=== PATIENT | female | born 1995 | race Caucasian/White ===

== ENCOUNTER → 2025-04-27 | Outpatient (CLI) | payer OTHER, SELFPAY ==
[2025-05-03 13:08] LABS: HPV APTIMA, High Risk Negative (Negative)
== END | disposition home or self-care (01) ==
LOC: LABSPEC 16:13
PROVIDERS: PCP Nurse Practitioner Family; Referring Provider Advanced Practice Midwife; Visit Provider Advanced Practice Midwife
DX: Z12.4 Encounter for screening for malignant neoplasm of cervix (principal)
CPT/HCPCS: 87624; 88175; G0145

== ENCOUNTER → 2025-05-02 | Outpatient (CLI) | payer OTHER, SELFPAY | END | disposition home or self-care (01) | LOC: OPUS 07:55 | PROVIDERS: PCP Nurse Practitioner Family; Referring Provider Advanced Practice Midwife; Visit Provider Advanced Practice Midwife | DX: N91.1 Secondary amenorrhea (principal) | CPT/HCPCS: 76830 ==

== ENCOUNTER → 2025-05-06 | Outpatient (CLI) | payer OTHER, SELFPAY | END | disposition home or self-care (01) | PROVIDERS: PCP Nurse Practitioner Family; Referring Provider Advanced Practice Midwife; Visit Provider Advanced Practice Midwife | DX: N97.0 Female infertility associated with anovulation (principal); Z87.42 Personal history of other diseases of the female genital tract; N91.1 Secondary amenorrhea | CPT/HCPCS: 36415; 83036; 84443 ==

== ENCOUNTER → 2025-05-25 | Outpatient (CLI) | payer OTHER, SELFPAY ==
--- OUTSIDE RECORDS SUMMARY | 2025-05-25 10:32 | XMS RPT_ITS | CCD ---
Author Organization [facility] Care Team Providers Care Facsimile Machine Operator Name Role Phone Melanie De Paz Unavailable Unavailable Melanie De Paz Unavailable Unavailable Melanie De Paz Unavailable Unavailable Melanie De Paz Unavailable Unavailable Brezine, Petrona Unavailable Unavailable Zeloalejandro, Petrona Unavailable Unavailable Unknown, Referring Provider Unavailable Unav ailable Unavailable Unavailable Unavailable Unavailable Unavailable DR MIGUELITO REESE DO Attending Unavailable DARIEN EDUCATIONAL TECHNOLOGY SPECIALIST-CLASSROOM INSTRUCTIONAL AIDE, SAMUEL A Primary Care Un available DARIEN EDUCATIONAL TECHNOLOGY SPECIALIST-CLASSROOM INSTRUCTIONAL AIDE, SAMUEL Perez Attending Un available DARIEN EDUCATIONAL TECHNOLOGY SPECIALIST-CLASSROOM INSTRUCTIONAL AIDE, SAMUEL A Primary Care Un available DARIEN EDUCATIONAL TECHNOLOGY SPECIALIST-CLASSROOM INSTRUCTIONAL AIDE, SAMUEL A Primary Care Physi winston Russell Robison Attending Provider [phone] Delma Moon CNM Attending Provider [phone] Jos PREP MANAGER-C, Carolyn Primary Care Provider [phone] Jos PREP MANAGER-C, Carolyn Referring Provider [phone] Delma Moon CNM Referring Provider Delma Moon Attending Unavailable Jos, Carolyn Primary Care Unavailable Delma Moon Referring Unavailable Delma Moon Attending Unavailable Jos, Carolyn Primary Care Unavailable Delma Moon Referring Unavailable Jos, Carolyn Primary Care Unavailable Delma Moon Referring Unavailable Delma Moon Attending Unavailable Jos, Carolyn Referring Unavailable Jos, Carolyn Primary Care Unavailable Delma Moon Attending Unavailable Russell Robison Attending Unavailable Allergies Allergy Classification Reported Allergen(s) Allergy Type Date of Onset Reaction(s) Facility (5 sources) Latex Allergy to substance 5 severe infection [facility] (1 source) Latex Drug allergy (disorder) 5 [facility] Repository Medications Current Medications Medication Drug Class(es) Dates Sig (Normalized) Sig (Original) ascorbic acid 250 mg oral tablet (5 sources) Vitamin C Start: 03-11-2025 take 1 tablet by mouth once daily Ascorbic Acid (Vitamin C) 250 mg tablet Active 250 mg PO daily March 11, 2025 12:00am cephalexin 500 mg oral capsule (1 source) Cephalosporin Antibacterial Start: 11-18-2023 End: 11-25-2023 cephalexin 500 mg oral capsule Dose : 500 mg = 1 cap(s), Oral, q12h, Drink plenty of fluids., X 7 day(s), # 14 cap(s), 0 Refill(s), 11/25/23 4:38:00 PM EST, Pharmacy: [facility]/pharmacy #[id number], 162.6, cm, 09/24/23 16:15:00 EST, Height, 72, kg, 09/24/23 16:15:00 EST, Dosing Weight Start Date: 11/18/23 Stop Date: 11/25/23 Status: Ordered cetirizine hydrochloride 10 mg oral tablet (5 sources) Histamine-1 Receptor Antagonist Start: 03-11-2025 take 1 tablet by mouth once daily as needed Cetirizine (Aller-Mehreen) 10 mg tablet Active 10 mg PO daily as needed March 11, 2025 12:00am clindamycin 0.01 mg/mg topical gel (5 sources) Lincosamide Antibacterial Start: 04-27-2025 Clindamycin Phosphate 1 % gel Active 1 NMA TOPICAL daily April 27, 2025 12:00am Start: 09-24-2023 End: 09-18-2024 clindamycin 1% topical gel A pply 1 jane, Topical, BID, please provide 3, 30 gram tubes at each refill if insurance approves 30 day supply., # 30 gram(s), 3 Refill(s), Pharmacy: [facility], Gel, 162.6, cm, 09/24/23 16:15:00 EST, Height, 72, kg, 09/24/23 16:15:00 EST, Dosing Weight Start Date: 09/24/23 Stop Date: 09/18/24 Status: Ordered Multivitamin (Daily Multi-Vitamin) tablet (5 sources) Start: 03-11-2025 Multivitamin ( Daily Multi-Vitamin) tablet Active 1 {tbl} PO EVERY MORNING March 11, 2025 12:00am spironolactone 25 mg oral tablet (1 source) Aldosterone Antagonist Start: 10-28-2023 End: 10-22-2024 spironolactone 25 mg oral tablet Dose : 25 mg = 1 tab(s), Oral, qDay, # 90 tab(s), 3 Refill(s), Pharmacy: [facility], Acne, 162.6, cm, 09/24/23 16:15:00 EST, Height, kg, 09/24/23 16:15:00 EST, Dosing Weight Start Date: 10/28/23 Stop Date: 10/22/24 Status: Ordered women's omega (4 sources) Start: 04-27-2025 women's omega Active PO April 27, 2025 12:00am Completed/Discontinued Medications Medication Drug Class(es) Dates Sig (Normalized) Sig (Original) amoxicillin 875 mg / clavulanate 125 mg oral tablet (4 sources) Penicillin-class Antibacterial Start: 03-11-2025 End: 03-21-2025 Amoxicillin-Pot Clavulanate 875-125 mg tablet Discontinued 1 {tbl} PO Q12H 20 10 0 March 11, 2025 12:00am March 20, 2025 12:00am March 21, 2025 12:07am Acute sinusitis, unspecified {24 (drospirenone 3 MG / Ethinyl Estradiol 0.02 MG / levomefolate calcium 0.451 MG Oral Tablet) / 4 (levomefolate calcium 0.451 MG Oral Tablet) } Pack (1 source) Progestin, Estrogen Start: 03-27-2022 drospirenone/ethin yl estradiol/levomefo late 3 mg-0.02 mg-0.451 mg oral tablet 0 Refill(s) Start Date: 03/27/22 Status: Ordered Sprintec 28 0.25-35 MG-MCG Oral Tablet (3 sources) Progestin, Estrogen Start: 07-29-2020 take 1 tablet by mouth once daily Sprintec 28 0.25-35 MG-MCG Oral Tablet TAKE 1 TABLET DAILY. Quantity: 3 Refills: 0 Petrona Arambula Start : 29-Jul-2020 Active 28 Tablet Pack Start: 07-05-2019 take 1 tablet by jeniffer th once daily Sprintec 28 0.25-35 MG-MCG Oral Tablet TAKE 1 TABLET DAILY. Quantity: 3 Refills: 4 Petrona Tse Start : 05-Jul-2019 Active 28 Tablet Pack Start: 06-01-2019 take 1 tablet by jeniffer th once daily Sprintec 28 0.25-35 MG-MCG Oral Tablet TAKE 1 TABLET DAILY. Quantity: 3 Refills: 0 Melanie De Paz MD Start : 01-Jun-2019 Active 28 Tablet Pack medroxyPROGESTERone acetate 5 mg oral tablet (4 sources) Progestin Start: 04-27-2025 End: 05-02-2025 take 2 tablets by mouth once daily Medroxyprogesterone (Provera) 5 mg tablet Discontinued 10 mg PO DAILY 10 5 0 April 27, 2025 12:00am May 01, 2025 12:00am May 02, 2025 12:06am Abnormal uterine bleeding Abnormal uterine and vaginal bleeding, unspecified 2 tabs daily for 5 days. Call office if no withdrawal bleed Sprintec 28 0.25-35 MG-MCG Oral Tablet (4 sources) Start: 09-08-2020 take 1 tablet by mouth once daily Sprintec 28 0.25-35 MG-MCG Oral Tablet TAKE 1 TABLET DAILY. Quantity: 3 Refills: 3 Ordered: 08-Sep-2020 Petrona Arambula Start : 08-Sep-2020 Active Start: 06-01-2019 take 1 tablet by jeniffer th once daily Sprintec 28 0.25-35 MG-MCG Oral Tablet TAKE 1 TABLET DAILY. Quantity: 3 Refills: 0 Ordered: 01-Jun-2019 Melanie De Paz MD Start : 01-Jun-2019 Active sulfamethoxazole 800 mg / trimethoprim 160 mg oral tablet (2 sources) Dihydrofolate Reductase Inhibitor Antibacterial, Sulfonamide Antimicrobial Start: 06-03-2021 take 1 tablet by mouth twice daily Sulfamethoxazole-Trimethoprim 800-160 MG Oral Tablet TAKE 1 TABLET TWICE DAILY. Quantity: 10 Refills: 0 Ordered: 03-Jun-2021 Leo QUINTERO, MPH, Daphney Start : 03-Jun-2021 Active Problems Active Problems Problem Classification Problem Date Documented Date Episodic/Chronic Asthma (5 sources) Asthma; Translations: [Unspecified asthma, uncomplicated] 03-11-2025 Chronic Contraceptive and procreative management (3 sources) Oral contraception status; Translations: [Surveillance of contraceptive pill] Episodic Female infertility (1 source) Female infertility associated with anovulation; Translations: [Female infertility associated with anovulation] Onset: 05-12-2025 Chronic Genitourinary symptoms and ill-defined conditions (6 sources) Dysuria; Translations: [Dysuria] Onset: 11-18-2023 Episodic Menstrual disorders (9 sources) Secondary amenorrhea; Translations: [Secondary amenorrhea] Onset: 05-06-2025 04-27-2025 Chronic Comment on above: Day 3 and 21 labs, T SH normal, TVUS Other endocrine disorders (1 source) Polycystic ovary syndrome 01-07-2022 Chronic Other female genital disorders (1 source) Abnormal uterine and vaginal bleeding, unspecified; Translations: [Abnormal uterine and vaginal bleeding, unspecified] Onset: 04-27-2025 Chronic Other female genital disorders (4 sources) History of gynecological disorder; Translations: [Personal history of other diseases of the female genital tract] 04-27-2025 Episodic Comment on above: on TVUS Other screening for suspected conditions (not mental disorders or infectious disease) (1 source) Encounter for screening for malignant neoplasm of cervix; Translations: [Encounter for screening for malignant neoplasm of cervix] Onset: 05-05-2025 Episodic Other skin disorders (1 source) Acne 01-07-2022 Episodic Other skin disorders (1 source) Hirsutism 01-07-2022 Episodic Other upper respiratory infections (8 sources) Acute sinusitis; Translations: [Acute sinusitis, unspecified] 03-11-2025 Episodic Unclassified (1 source) Unknown / UNK(Unknown) Onset: 04-17-2018 Unclassified (1 source) Patient encounter status 03-26-2022 Past or Other Problems Problem Classification Problem Date Documented Da te Episodic/Chronic Unclassified (1 source) Z01.419 N39.0 N76.0 Onset: 04-17-2018 Results Test Name Value Interpretation Reference Range Facility Hemoglobin A1con 05-06-2025 HbA1c (Bld) [Mass fraction] 5.0 % Normal <=5.6 [facility] Comment on above: Result Comment: Norm al < 5.7 % Prediabetic 5.7 - 6.4 % Diabetic >or= 6.5 % Please note range changes. Performed By: #### L 501.9520, L900.0111, L501.9985 #### [facility] [address] [place], [address] Hemoglobin A1c percentageOrd ered By: Delma Moon on 05-06-2025 HbA1c (Bld) [Mass fraction] 5.0 % <5.7 [facility] Comment on above: Normal < 5.7 % Predi abetic 5.7 - 6.4 % Diabetic >or= 6.5 % Please note range changes. L900.0111on 05-06-2025 REPROSOURCE SEE SCANNED REPORT Normal [facility] Comment on above: Performed By: #### L 501.9520, L900.0111, L501.9985 #### [facility] [address] [place], [place], [id number] No Panel InformationOrdered By: Delma Moon on 05-06-2025 Miscellaneous Test Comment SEE SCANNED REPORT [facility] TSH DL <= 0.005 mIU/L QnOrde red By: Delma Moon on 05-06-2025 TSH Qn 1.360 uIU/mL 0.300-4.200 [facility] Thyroid Stim Hormone (TSH)on 05-06-2025 TSH 1.360 uIU/mL Normal 0.300-4.200 [facility] Comment on above: Performed By: #### L 501.9520, L900.0111, L501.9985 #### [facility] [address] [place], [address] PAP IG HPV APTIMA 16/18,45on 05-03-2025 ADEQ Comment Normal . [facility] Comment on above: Order Comment: Speci men Comment: [id number] Specimen Comment: No. of containers..01 ThinPrep Vial Result Comment: Sati sfactory for evaluation. No endocervical component is identified. Performed By: #### L 7400.0280 #### [facility] [address] [place], [address] COMM . Normal . [facility] Comment on above: Order Comment: Speci men Comment: [id number] Specimen Comment: No. of containers..01 ThinPrep Vial Performed By: #### L 7400.0280 #### [facility] [address] [place], [place], [id number] COMMENT Comment Normal . [facility] Comment on above: Order Comment: Speci men Comment: [id number] Specimen Comment: No. of containers..01 ThinPrep Vial Result Comment: This liquid based ThinPrep(R) pap test was screened with the use of an image guided system. Performed By: #### L 7400.0280 #### [facility] [address] [place], [address] DIAG Comment Normal . [facility] Comment on above: Order Comment: Speci men Comment: [id number] Specimen Comment: No. of containers..01 ThinPrep Vial Result Comment: NEGA TIVE FOR INTRAEPITHELIAL LESION OR MALIGNANCY. Performed By: #### L 7400.0280 #### [facility] [address] [place], [address] HPV APTIMA, HR Negative Normal Negative [facility] Comment on above: Order Comment: Speci men Comment: [id number] Specimen Comment: No. of containers..01 ThinPrep Vial Result Comment: This nucleic acid amplification test detects fourteen high- risk HPV types (16,18,31,33,35,39,45,51,52,56,58,59,66,68) without differentiation. Performed By: #### L 7400.0280 #### [facility] [address] [place], [address] HPV Claire Rfx Comment Normal . [facility] Comment on above: Order Comment: Speci men Comment: [id number] Specimen Comment: No. of containers..01 ThinPrep Vial Result Comment: Raghu castro not met, HPV Genotype not performed. Performed at: WB - [facility] [address] [id number] Stock Supervisor: Leonela Campbell MD, Phone: [phone] Performed at: =G - [facility] [place] [address] [facility], [place] [id number] Stock Supervisor: Leonela Campbell MD, Phone: [phone] Performed By: #### L 7400.0280 #### [facility] [address] [place], [place], [address] PAPSMR Comment Normal . [facility] Comment on above: Order Comment: Speci men Comment: [id number] Specimen Comment: No. of containers..01 ThinPrep Vial Result Comment: The Pap smear is a screening test designed to aid in the detection of premalignant and malignant conditions of the uterine cervix. It is not a diagnostic procedure and should not be used as the sole means of detecting cervical cancer. Both false-positive and false-negative reports do occur. Performed By: #### L 7400.0280 #### [facility] [address] [place], [place], [id number] PERFORM Comment Normal . [facility] Comment on above: Order Comment: Speci men Comment: [id number] Specimen Comment: No. of containers..01 ThinPrep Vial Result Comment: Gee Fatima Residential [facility] Facility Manager (ASCP) Performed By: #### L 7400.0280 #### [facility] [address] [place], [place], [id number] Transvaginal Non-on 05-02-2025 Transvaginal Non- [facility] Services [address] [place], [place] [address] Transvaginal Non- MR#: [id number] Acct: [id number] Name: ELLY GANDHI Rep #: [id number] : 1995 F 30 From: Chance lewis MD PCP: [facility] Status: REG CLI Study: Transvaginal Non- Date of Exam: Exam# [id number] Ordering Dr: Delma Moon CNM PROCEDURE: TRANSVAGINAL NON- 05/02/2025 REASON FOR EXAM: AMENORRHEA History of polycystic ovary syndrome. TECHNIQUE: TRANSVAGINAL NON- COMPARISON: None FINDINGS: LMP: February 13, 2025. Measurements: Uterus: 8.9 cm x 4.9 cm x 3.5 cm with a volume of 80.22 mL. Nabothian cyst. Endometrial Thickness: 5.7 mm. It is hyperechoic. Right Ovary: 3.8 cm x 2.8 cm x 2.4 cm with a volume of 13.09 mL. Small follicles are seen within the ovary. Left Ovary: 4.8 cm x 3.5 cm x 2.8 cm with a volume of 24.48 mL. Small follicles are seen within the ovary. Uterus: Normal size, myometrial echotexture, and contour. Endometrium: Unremarkable. Right ovary: Multiple follicles are seen within the right ovary. Left ovary: Multiple follicles are seen within the left ovary. Other: US/Transvaginal Non- IMPRESSION: Multiple follicles are seen in both ovaries. Reading Location: [place] [address] CC: BENNETT Moon; PREP MANAGER-C Carolyn Arguello President Financial Institution: Signed Normal [facility] Cervical or vaginal specimen microscopic examination by liquid based cytology (reportOrdered By: Delma Moon on 04-27-2025 Cytology report Cyto stain.thin prep Doc (Cvx/Vag) Comment . [facility] Comment on above: Criteria not met, HP V Genotype not performed.Performed at: - [facility] [id number] Director: Leonela Campbell MD, Phone: [phone] at: = - [facility] [id number] Director: Leonela Campbell MD, Phone: [phone] Cervical or vagninal specime n microscopic examination by cytology stain (reported asOrdered By: Delma Moon on 04-27-2025 Cytology report Cyto stain Doc (Cvx/Vag) Comment . [facility] Comment on above: The Pap smear is a s creening test designed to aid in thedetection of premalignant and malignant conditions of theuterine cervix. It is not a diagnostic procedure andshould not be used as the sole means of detecting cervicalcancer. Both false-positive and false-negative reports dooccur. Detection in cervical specim en of any of human papilloma virus (HPV) 16, 18, 31, 33,Ordered By: Delma Moon on 04-27-2025 HPV 16+18+31+33+35+39+45+51 +52+56+58+59+66+68 DNA Probe+sig amp Ql (Cvx) Negative Negative [facility] Comment on above: This nucleic acid am plification test detects fourteen high-risk HPV types (16,18,31,33,35,39,45,51,52,56,58,59,66,68)without differentiation. Laboratory - CytologyOrdered By: Delma Moon on 04-27-2025 Residential Care Facility Manager Cyto stain Nom (Cvx/Vag) [ID] Comment . [facility] Comment on above: Shawn Fatima, Cyto logist (ASCP) Laboratory - Miscellaneous t estsOrdered By: Delma Moon on 04-27-2025 Service comment (Unsp spec) [Interp] . . [facility] No Panel InformationOrdered By: Delma Moon on 04-27-2025 Pap Smear Specimen Adequacy Comment . [facility] Comment on above: Satisfactory for vikram luation. No endocervical component is identified. Blackjack Pit Boss Office Visit Reporton 04-27-2025 Blackjack Pit Boss Office Visit Report [facility] [address], [address] [place] [address] OFFICE VISIT Date of Service: 04/27/25 MR#: [id number] Acct: [id number] Name: Elly Gandhi Rep #: [id number] : 1995 Provider: BENNETT Sandhu ams Age/Sex: 30/F Location: [facility] [place] Status: Signed Intake Vital Signs 03/11/25 09:35 04/27/25 10:28 04/27/25 10:36 Height 5 ft 4 in 5 ft 4 in 5 ft 4 in Weight: 184 lb 168 lb BMI 31.6 28.8 BP 120/86 H 115/80 Position Sitting Respiration 86 H Temp 98.2 F Pulse Oximetry (%) 98 Oxygen Delivery Method room air Intake 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 Is patient in pain?: No Allergies latex Allergy (Verified 04/27/25 10:29) severe infection Medications ???Medication ???Instructions ???Recorded ???Confirmed ???Type ascorbic acid (vitamin C) 250 mg 250 mg PO QDAY 03/11/25 04/27/25 H istory tablet cetirizine 10 mg tablet (Aller-Mehreen) 10 mg PO QDAY PRN 03/11/2512/21 History multivitamin (Daily Multi-Vitamin 1 tab PO QAM 03/11/25 04/27/25 Hi story tablet) clindamycin phosphate 1 % topical 1 applic topical QDAY 04/27/25 History gel medroxyprogesterone 5 mg tablet 10 mg (2 x 5 mg) PO DAILY 5 days 0 04/27/25 04/27/25 Rx (Provera) #10 tabs women's omega PO 04/27/25 History Is last menstrual period known: Yes Last Menstrual Period: 02/04/25 Post menopausal: No Patient : No : No Do you think of yourself as: straight/heterosexua l Current gender identity: female Control Method: none PFSH Medical History (Updated 04/27/25 @ 10:48 by Delma Moon CNM) Skin cancer Surgical History (Updated 04/08/25 @ 13:43 by Rosio Aguilera) H/O skin graft History of tonsillectomy and adenoidectomy History of bunionectomy Family History (Updated 04/08/25 @ 13:45 by Rosio Aguilera) Grandmother Blood clot in leg Grandmother High cholesterol Mother Asthma Breast cancer Cervical cancer Diabetes Hypertension Hormone deficiency Melanoma Severe allergy Social History (Updated 04/27/25 @ 10:36 by Francine Mills) adopted: No household members: spouse housing: house number of children: 0 current occupational status: employed 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 pets and animals: Yes pets and animals: dog(s) history of recent travel: No sexually active: Yes Smoking Status: Never smoker second hand exposure: No alcohol intake: current alcohol intake frequency: holidays/special occasions only substance use type: does not use well-balanced diet: about half the time caffeine: No eating out: 1-3 times/week during the past year weight has: increased > 10 lbs what type of physical activity do you participate in: none greg/temple: [employer] seatbelt use: always do you feel safe at home: Yes additional social history: - Willie HPI Encounter for routine gynecological examination Details: Elly Gandhi is a 30 year old who presents for new annual exam. HX of PCOS and TTC. Stopped BC in April and had regular cycles until January-negative tests in february. discussed work up for infertility. PLan day 3 and day 21 labs, TVUS and possible HSG. mother had breast cancer and had genetic testing and was neg. Last PAP: 2021 History of abnormal PAP: [] Last mammogram: age 39 History of abnormal mammogram: na Colon cancer screening: [] Other preventative health care screenings: PCP Female Reproductive History Last Menstrual Period: 02/04/25 Bleeding Duration: 4 Questions: metorrhagia: No, sexually active: Yes, dyspareunia: No and PCB: No ROS Const Constitutional: Reports system reviewed and no additional complaints, except as documented Cardio Card: Reports system reviewed and no additional complaints, except as documented Resp Resp: Reports system reviewed and no additional complaints, except as documented GI GI: Reports system reviewed and no additional complaints, except as documented : Reports system reviewed and no additional complaints, except as documented; Denies difficulty voiding, dysuria or urinary frequency Skin Skin/Breast: Reports system reviewed and no additional complaints, except as documented Neuro Neuro: Reports system reviewed and no additional complaints, except as documented Psych Psych: Reports system reviewed and no additional complaints, except as documented; Denies anhedonia, anxiety or depression Exam Const General: cooperative, healthy appearing, comfortable and no acute distress Orientation: alert, awake and oriented x3 Neck Neck: normal visual inspection and full ROM Thyroid: thyroid normal Chest Breast inspection: normal inspection of the breasts and normal inspection of the axillae Breast palpation: normal (more content not included)... Normal [facility] Urgent Care Visit Reporton 0 03-11-2025 Urgent Care Visit Report [facility] [address], [address] [place] [address] OFFICE VISIT Date of Service: 03/11/25 MR#: [id number] Acct: [id number] Name: Elly Gandhi Rep #: [id number] : 1995 Provider: JAMEL Jeffrey Age/Sex: 29/F Location: [facility] [place] Status: Signed Intake Vital Signs 03/11/25 09:35 Height 5 ft 4 in Weight: 184 lb BMI 31.6 BP 120/86 H Position Sitting Respiration 86 H Temp 98.2 F Temp Source Oral Pulse Oximetry (%) 98 Oxygen Delivery Method room air Intake Visit Reasons: sore throat, bilat ear pain Accompanied by: Self Allergies latex Allergy (Verified 03/11/25 09:28) severe infection Medications ???Medication ???Instructions ???Recorded ???Confirmed ???Type amoxicillin 875 mg-potassium 1 tab PO Q12H 10 days #20 tabs 03/11/25 Rx clavulanate 125 mg tablet ascorbic acid (vitamin C) 250 mg 250 mg PO QDAY 03/11/25 03/11/25 H istory tablet cetirizine 10 mg tablet (Aller-Mehreen) 10 mg PO QDAY PRN 03/11/2502/24 History multivitamin (Daily Multi-Vitamin 1 tab PO QAM 03/11/25 03/11/25 Hi story tablet) Nurse's Note: Patient has a ST, Bilateral ear pain that has been going on since Fri. Patient state she had a fever fri and but this morning no fever. COUNT INCLUDES THE [facility] Surgical History (Updated 03/11/25 @ 09:31 by Cleo Ely MA) History of tonsillectomy and adenoidectomy History of bunionectomy HPI HPI Details: Elly Gandhi, is a 29 F who presents to the office today for complaint of bilateral ear pain, sore throat and sinus congestion/pressure for the past week. Patient denies hemoptysis, shortness of breath or difficulty breathing. No loss of taste or smell. No nausea, vomiting or diarrhea. No other associated symptoms or alleviating/aggravat ing factors. ROS Const Constitutional: No other (6 system ROS completed with pertinent findings in the HPI otherwise normal.) Exam Const General: cooperative and healthy appearing HENMT Head: normal to inspection Ears: hearing grossly normal bilaterally, TM's normal bilaterally and EAC's normal Nose: nasal discharge purulent Face and sinus: sinus tenderness frontal and maxillary Mouth: oral mucosae normal Throat: abnormal tonsil bilaterally erythema and hypertrophy 1+ and postnasal drainage Resp Effort Inspection: normal respiratory effort Auscultation: Bilateral: Clear to Auscultation Cardio Palpation: normal PMI Rate: regular rate Rhythm: regular rhythm Neuro General: patient alert and CN's II-XI intact bilaterally Psych Appearance: grossly normal Mental Status: mental status grossly normal Coding Level of Care Code Off vis,new,level 3 Diagnoses Acute sinusitis J Assessment and Plan Assessment and Plan (1) Acute sinusitis: Status: Acute Plan: Augmentin as prescribed today. Encouraged to get plenty of rest, drink lots of clear liquids, and use Tylenol or Ibuprofen (unless contraindicated) for fever and comfort. Patient also educated on other symptomatic management techniques. To be seen in 7-10 days if no improvement; sooner if worsening of symptoms. Patient advised of potential red flags and when appropriate to report to the ED. Patient verbalized understanding and agreement with all the above. Medications: New amoxicillin-pot clavulanate 875-125 mg 1 TAB PO Q12H 20 tabs 0RF 10 days J - Acute sinusitis, unspecified 03/11/25 1009 Date Russell Weathers Signature: Date (if applicable) CC: Normal [facility] AMPICILLIN:SUSC:PT:ISOLATE:O RDQN:MICon 11-18-2023 Ampicillin NICOL [Susc] 50,000 - 100,000 cfu/ml Escherichia coli [facility] Ampicillin NICOL [Susc]on 10-28 Escherichia coli Escherichia coli [facility] .GFRon 10-16-2023 GFR 81 ml/min/1.73sqm [facility] [place] Comment on above: Result Comment: GFR Population mean for , Non- Americans Ages 20-29 = 116 mL/min/1.73 sq.m. Ages 30-39 = 107 mL/min/1.73 sq.m. Ages 40-49 = 99 mL/min/1.73 sq.m. Ages 50-59 = 93 mL/min/1.73 sq.m. Ages 60-69 = 85 mL/min/1.73 sq.m. Ages 70+ = 75 mL/min/1.73 sq.m. Chronic Kidney Disease: Less than 60 mL/min/1.73 square meters End Stage Renal Disease: Less than 15 mL/min/1.73 square meters Performed By: #### G , CMP #### [address] [address] GFR Non- 67 ml/min/1.73sqm [facility] [place] Comment on above: Result Comment: GFR Population mean for , Non- Americans Ages 20-29 = 116 mL/min/1.73 sq.m. Ages 30-39 = 107 mL/min/1.73 sq.m. Ages 40-49 = 99 mL/min/1.73 sq.m. Ages 50-59 = 93 mL/min/1.73 sq.m. Ages 60-69 = 85 mL/min/1.73 sq.m. Ages 70+ = 75 mL/min/1.73 sq.m. Chronic Kidney Disease: Less than 60 mL/min/1.73 square meters End Stage Renal Disease: Less than 15 mL/min/1.73 square meters Performed By: #### G FR, CMP #### [address] [address] CMPon 10-16-2023 Albumin Level 3.5 G/dL Normal 3.5-5.0 [facility] ([place] Comment on above: Performed By: #### G FR, CMP #### [address] [address] Albumin/Globulin [Mass ratio] 1.0 {ratio} Low 1.1-2.5 [facility] [place] Comment on above: Performed By: #### G , CMP #### [address] [address] ALP [Catalytic activity/Vol] 47 U/L Normal 40-135 [facility] [place] Comment on above: Performed By: #### G , CMP #### [address] [address] ALT [Catalytic activity/Vol] 15 U/L Normal 14-59 [facility] [place] Comment on above: Performed By: #### G , CMP #### [address] [address] AST [Catalytic activity/Vol] 11 U/L Normal 10-40 [facility] [place] Comment on above: Performed By: #### Shannen ESQUEDA, CMP #### [address] [address] Bili Total 0.6 mg/dL Normal 0.2-1.0 [facility] [place] Comment on above: Result Comment: Use of this assay is not recommended for patients undergoing treatment with eltrombopag due to the potential for falsely elevated results. Performed By: #### Shannen ESQUEDA, CMP #### [address] [address] BUN/Creatinine Ratio 14 ratio Normal 7-27 [facility] ([place] Comment on above: Performed By: #### G , CMP #### [address] [address] Calcium [Mass/Vol] 9.4 mg/dL Normal 8.4-10.2 [facility] ([place] Comment on above: Performed By: #### Shannen ESQUEDA, CMP #### [address] [address] Chloride [Moles/Vol] 104 mmol/L Normal 98-107 [facility] ([place] Comment on above: Performed By: #### G , CMP #### [address] [address] CO2 [Moles/Vol] 27 mmol/L Normal 22-29 [facility] ([place] Comment on above: Performed By: #### G FR, CMP #### [address] [address] Creatinine [Mass/Vol] 0.98 mg/dL Normal 0.55-1.02 [facility] [place] Comment on above: Performed By: #### G , CMP #### [address] [address] Electrolyte Balance 12.0 mEq/L Normal 4.0-15.0 [facility] ([place] Comment on above: Performed By: #### G , CMP #### [address] [address] Globulin 3.6 G/dL [facility] [place] Comment on above: Performed By: #### G , CMP #### [address] [address] Glucose [Mass/Vol] 99 mg/dL Normal 70-105 [facility] ([place] Comment on above: Performed By: #### G , CMP #### [address] [address] Potassium [Moles/Vol] 4.3 mmol/L Normal 3.5-5.1 [facility] [place] Comment on above: Performed By: #### G FR, CMP #### [address] [address] Sodium [Moles/Vol] 143 mmol/L Normal 136-145 [facility] ([place] Comment on above: Performed By: #### G FR, CMP #### [address] [address] Total Protein 7.1 G/dL Normal 6.4-8.2 [facility] ([place] Comment on above: Performed By: #### G FR, CMP #### [id number] [place], [place] [address] Urea nitrogen [Mass/Vol] 14 mg/dL Normal 7-18 [facility] [place] Comment on above: Performed By: #### G FR, CMP #### [id number] [place], [place] [address] Cult, Urineon 06-03-2021 Bacteria identified Cx Nom (U) PATIENT: ELLY MAGAÑA LOCATION: [address]#: [id number] : [birth year] AGE: SEX: F ORDERED BY: DAPHNEY CONTRERAS SOURCE: URINE [facility] Work Phone: IO HCG, Urine Test on 06-03-2021 HCG ( test) Ql (U) Negative [facility] Work Phone: IO UA (automated w/ microsco py)on 06-03-2021 Protein (U) [Mass/Vol] Negative [facility] Work Phone: IO UA (automated w/ microscopy) (++)moderate - 40 Abnormal [facility] Work Phone: IO UA (automated w/ microscopy) Normal (0.2-1.0 mg/dl) [facility] Work Phone: IO UA (automated w/ microscopy) 5.5 1 [facility] Work Phone: IO UA (automated w/ microscopy) 1.020 1 [facility] Work Phone: IO UA (automated w/ microscopy) Negative [facility] Work Phone: IO UA (automated w/ microscopy) Hazy [facility] Work Phone: IO UA (automated w/ microscopy) Yellow [facility] Work Phone: Office Visit (Urgent Care)on 06-03-2021 Follow-up visit Diagnoses/Problems Assessed Dysuria (788.1) (R30.0) Orders Dysuria Start: Sulfamethoxazole-Tri methoprim 800-160 MG Oral Tablet; TAKE 1 TABLET TWICE DAILY Rx By: Daphney Contreras; Dispense: 5 Days ; #:10 Tablet; Refill: 0;For: Dysuria; VAIBHAV = N; Sent To: [id number] Cult, Urine; Status:In Progress - Specimen/Data Collected; Done: [id number] Perform:Lab Services - Office to Draw (Non-Blood Test); Due:[id number];Ordere d; For:Dysuria; Ordered By:Daphney Contreras; Patient Discussion/Summary Push extra fluids as tolerated and empty bladder frequently. Do not 'hold' urine. Recheck if worse or not improved. If you had a urine culture done, we will contact you if the culture shows that you need a change in your treatment. History of Present Illness States that she was treated by telemedicine provider on May 23 for presumed UTI. She was placed on antibiotics, she believes it was Macrodantin, and finish the prescription. Presents now because the urinary frequency and urgency have returned today. No dysuria yet. No fever, chills, nausea, vomiting, stool changes, back or abdominal pain. Last menstrual period was about 4 weeks ago. Review of Systems Constitutional: as noted in HPI. Gastrointestinal: as noted in HPI. Genitourinary: as noted in HPI. Active Problems Problems Family planning, BCP ( control pills) maintenance (V25.41) (Z30.41) Social History Problems Denied: History of Drug use Engaged to be Never a smoker Occasional alcohol use Occasional caffeine consumption Allergies Medication No Known Drug Allergies Recorded By: Betsy Angel; 06/01/2019 3:41:50 PM Current Meds Medication NameInstruction Sprintec 28 0.25-35 MG-MCG Oral TabletTAKE 1 TABLET DAILY. Sprintec 28 0.25-35 MG-MCG Oral TabletTAKE 1 TABLET DAILY. Physical Exam Alert, moves easily, climbs on and off the exam table without distress. Abdomen is grossly benign. Dip urinalysis and urine hCG are noted, urine will be sent for culture. Declines fluconazole and phenazopyridine Rx's. Signatures Electronically signed by : Daphney Contreras MD MPH; Jun 03 2021 1:54PM EST (Author) Normal [facility] URINE CULTURE,BACTERIALon URINE CULTURE,BACTERIAL PATIENT: ELLY MAGAÑA LOCATION: [facility] BILL#: [id number] : 89 AGE: SEX: F ORDERED BY: DAPHNEY CONTRERAS SOURCE: URINE COLLECTED: 06/03/21 13:54 ANTIBIOTICS AT [facility].: RECEIVED : 06/04/21 03:22 SITE: Unspecified R E S U L T S URINE CULTURE,BACTERIAL FINAL 06/05/21 08:55 NO SIGNIFICANT GROWTH. Normal [facility] Comment on above: Performed By: #### U [facility] #### [facility] [address] [place] [address] YIELD ENGINEER - Office Visiton 08-27 YIELD ENGINEER - Office Visit Chief Complaint Patient here for annual exam. Last pap: 04.17.2018 ascus negative LMP: 08.18.2020 Shahana Narayan MA Active Problems Family planning, BCP ( control pills) maintenance (V25.41) (Z30.41) Social History Denied: History of Drug use Engaged to be Never a smoker Occasional alcohol use Occasional caffeine consumption Allergies No Known Drug Allergies Recorded By: Betsy Angel; 06/01/2019 3:41:50 PM Current Meds Sprintec 28 0.25-35 MG-MCG Oral Tablet; TAKE 1 TABLET DAILY; Therapy: [id number] to (Evaluate:24Aug2019) Requested for: 31Aug2019; Last Rx:[id number] Ordered Rx By: Melanie De Paz; Dispense: 84 Days ; #:3 X 28 Tablet Pack; Refill: 0;For: Family planning, BCP ( control pills) maintenance; VAIBHAV = N; Verified Transmission to [facility]; Last Updated By: Paty Hernández; 08/31/2019 12:30:44 AM Vitals Vital Signs Recorded: 08Sep2020 02:28PM Agneaofzxwh58.7 F, Temporal Vupsyorm068, RUE, Sitting Yvyyjopme99, RUE, Sitting Blood Pressure Cuff SizeAdult Height5 ft 4 in Zasiqz518 lb 2 oz BMI Ijkmeehxox44 BSA Calculated1.79 [id number] Physical Exam Constitutional: Alert and in no acute distress. Well developed, well nourished. Head and Face: Acne: Present. scarring. Neck: No neck asymmetry. Supple. Thyroid not enlarged and there were no palpable thyroid nodules. Cardiovascular: Heart rate and rhythm were normal, normal S1 and S2, no gallops, and no murmurs. Pulmonary: No respiratory distress. Clear bilateral breath sounds. Chest: Breasts: Normal appearance, no nipple discharge and no skin changes. Palpation of breasts and axillae: No palpable mass and no axillary lymphadenopathy. Chest: Normal . Hirsutism: Absent. Abdomen: Soft nontender; no abdominal mass palpated. Genitourinary: External genitalia: Normal. Palpation of lymph nodes in groin: No inguinal lymphadenopathy. Bartholin's Urethral and Skenes Glands: Normal. Vestibule: Normal. Urethra: Normal. Bladder: Normal on palpation. Vagina: Normal. Cervix: Normal. a Pap smear was not performed. Patient does not have an IUD. Uterus: Normal. Right Adnexa/parametria: Normal. Left Adnexa/parametria: Normal. Inspection of Perianal Area: Normal. Musculoskeletal: Muscle strength/tone: Normal. Psychiatric: Alert and oriented x 3. Affect normal to patient baseline. Mood: Appropriate. Judgment and insight: Intact. Diagnoses/Problems Family planning, BCP ( control pills) maintenance (V25.41) (Z30.41) Orders Start: Sprintec 28 0.25-35 MG-MCG Oral Tablet; TAKE 1 TABLET DAILY Rx By: Petrona Alexander; Dispense: 84 Days ; #:3 X 28 Tablet Pack; Refill: 3;For: Family planning, BCP ( control pills) maintenance; VAIBHAV = N; Verified Transmission to [employer] (Mail Order); Last Updated By: 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 Last pap was 07/2018 (neg.). Pt is happy on her current COCPs. She declined any other testing. Planning a wedding next year. Impression:. normal [facility] [employer]AM[employer] exam. Current Status:. Her condition is stable. Treatment Plan:. RX- Sptrintec F/u in 1 year and as needed. Signatures Electronically signed by : JOSÉ MANUEL Fernandez; Sep 08 2020 6:18PM EST (Author) Normal [facility] CYTOLOGY SPECIMENon 04-24-20 18 CYTOLOGY SPEC Normal [facility] Comment on above: Order Comment: Comme nt: THIN PREP PAP, HPV REFLEX Result Comment: Note : Specimens received on or after June:* Reports will be faxed to all physician's office.If you are a physician or have access to [facility]:* Pathology and Cytology reports are located in [facility] in the folder labeled Medical Record Forms.* Reports are also in the Physician Portal.* For assistance locating reports call: (LAB) [phone] Performed By: #### L CYTO ####[address] [place] [address] CHLAMYDIA/GCon 04-21-2018 CHLAMYDIA/GC C.TRACHOMATIS METHOD: NUCLEIC ACID AMP Negative N.GONORRHOEAE METHOD: NUCLEIC ACID AMP Negative Normal [facility] Comment on above: Performed By: #### M CHLAMGC ####[facility] [id number] [place] [address] N. gonorrhoeae/C. trachomati s, Amplifiedon 04-17-2018 Chlamydia trachomatis, Amplified Negative Normal Negative [facility] Comment on above: Performed By: #### [facility] ####[facility] [address] [place] [address] GC/CHLAM/TRICA Source Swab-Endocerv Normal [facility] Comment on above: Performed By: #### [facility] ####[facility] [address] [place] [address] Neisseria gonorrhoeae, Amplified Negative Normal Negative [facility] Comment on above: Performed By: #### [facility] ####[facility] [address] [place] [address] Vital Signs Date Time Vital Sign Value Performing Clinician Facility 04-27-2025 10:36-0400 Body height 162.56 cm Carolyn YIP Work Phone: [facility] 04-27-2025 10:28-0400 Body mass index (BMI) [Ratio] 28.8 kg/m2 Carolyn Arguello PREP MANAGER-C Work Phone: [facility] 04-27-2025 10:28-0400 Body weight 76.2 kg Carolyn Arguello PREP MANAGER-C Work Phone: [facility] 04-27-2025 10:28-0400 Diastolic blood pressure 80 mm[Hg] Carolyn Arguello PREP MANAGER-C Work Phone: [facility] 04-27-2025 10:28-0400 Systolic blood pressure 115 mm[Hg] Carolyn Arguello PREP MANAGER-C Work Phone: [facility] 03-11-2025 09:35-0400 Body height 162.56 cm Russell Martinez PA Work Phone: [facility] 03-11-2025 09:35-0400 Body mass index (BMI) [Ratio] 31.6 kg/m2 Russell Martinez PA Work Phone: [facility] 03-11-2025 09:35-0400 Body temperature 98.2 [degF] Russell Martinez PA Work Phone: [facility] 03-11-2025 09:35-0400 Body weight 83.46 kg Russell Martinez PA Work Phone: [facility] 03-11-2025 09:35-0400 Diastolic blood pressure 86 mm[Hg] Russell Martinez PA Work Phone: [facility] 03-11-2025 09:35-0400 Respiratory rate 86 /min Russell Martinez PA Work Phone: [facility] 03-11-2025 09:35-0400 SaO2% (BldA) [Mass fraction] 98 % Russell Martinez PA Work Phone: [facility] 03-11-2025 09:35-0400 Systolic blood pressure 120 mm[Hg] Russell Martinez PA Work Phone: [facility] 06-03-2021 13:50-0400 Body height 162.56 cm Daphney Contreras MD, MPH Work Phone: [facility] Work Phone: 06-03-2021 13:50-0400 Body mass index (BMI) [Ratio] 25.75 kg/m2 Daphney Contreras MD, MPH Work Phone: [facility] Work Phone: 06-03-2021 13:50-0400 Body surface area Derived from formula 1.73 m2 Daphney Contreras MD, MPH Work Phone: [facility] Work Phone: 06-03-2021 13:50-0400 Body temperature 98 [degF] Daphney Contreras MD, MPH Work Phone: [facility] Work Phone: 06-03-2021 13:50-0400 Body weight 68.04 kg Daphney Contreras MD, MPH Work Phone: [facility] Work Phone: 06-03-2021 13:50-0400 Diastolic blood pressure 91 mm[Hg] Daphney Contreras MD, MPH Work Phone: [facility] Work Phone: 06-03-2021 13:50-0400 Heart rate 86 /min Daphney Contreras MD, MPH Work Phone: [facility] Work Phone: 06-03-2021 13:50-0400 Respiratory rate 16 /min Daphney Contreras MD, MPH Work Phone: [facility] Work Phone: 06-03-2021 13:50-0400 SaO2% (BldA) [Mass fraction] 96 % Daphney Contreras MD, MPH Work Phone: [facility] Work Phone: 06-03-2021 13:50-0400 Systolic blood pressure 132 mm[Hg] Daphney Contreras MD, MPH Work Phone: [facility] Work Phone: 06-03-2021 13:50-0400 5 1 Daphney Contreras MD, MPH Work Phone: [facility] Work Phone: Comment on above: [employer] Encounters Encounter Date Encounter Type Care Provider Facility Start: 05-06-2025 End: 05-06-2025 ambulatory Carolyn Arguello PREP MANAGER-C Work Phone: -[facility] Start: 05-06-2025 End: 05-06-2025 Patient encounter procedure Delma Moon CNM -[facility] Start: 05-06-2025 End: 05-06-2025 ambulatory Delma Moon Facility:[facility] Start: 05-02-2025 End: 05-02-2025 ambulatory Carolyn Arguello PREP MANAGER-C Work Phone: -[facility] Start: 05-02-2025 End: 05-02-2025 Patient encounter procedure Delma Moon CNM -[facility] Work Phone: Start: 05-02-2025 End: 05-02-2025 ambulatory Delma Moon Facility:[facility] Start: 04-27-2025 End: 04-27-2025 ambulatory Carolyn Arguello PREP MANAGER-C Work Phone: -Laboratory Specimen Start: 04-27-2025 End: 04-27-2025 Patient encounter procedure Delma ORNELAS -Laboratory Specimen Work Phone: Start: 04-27-2025 End: 04-27-2025 Patient encounter procedure Delma Moon CNM -[facility] Start: 04-27-2025 End: 04-27-2025 Patient encounter status Delma Moon CNM [facility] Start: 04-27-2025 End: 04-27-2025 ambulatory Carolyn Arguello PREP MANAGER-C Work Phone: -[facility] Start: 04-27-2025 End: 04-27-2025 ambulatory Carolynalanis Arguello Facility:[facility] Start: 03-11-2025 End: 03-11-2025 Patient encounter procedure Russell MCCULLOUGH -[facility] Work Phone: Start: 03-11-2025 End: 03-11-[address] [facility] Work Phone: Start: 11-18-[address] MIGUELITO REESE DO Facili ty:B Start: 11-18-2023 End: 11-22-[address] MIGUELITO REESE DO [facility] Start: 10-16-2023 End: 10-17-2023 ambulatory SAMUEL LEDEZMA EDUCATIONAL TECHNOLOGY SPECIALIST-CLASSROOM INSTRUCTIONAL AIDE Facility:B Start: 06-03-2021 Office outpatient ne w 20 minutes Daphney Contreras MD, MPH Work Phone: [facility] Work Phone: Start: 04-17-2018 Ambulatory Melanie Varner lity:[facility] Procedures Date Procedure Procedure Detail Performing Clinician Start: 05-02-2025 Transvaginal echography Carolyn Arguello PREP MANAGER-C Work Phone: Start: 04-27-2025 Liquid based cervica l cytology screening Carolyn Arguello PREP MANAGER-C Work Phone: Comment on above: NEGATIVE FOR INTRAEP ITHELIAL LESION OR MALIGNANCY. This liquid based Th inPrep(R) pap test was screened withthe use of an image guided system. Start: 10-27-2016 Structure of wisdom tooth (body structure) DR MIGUELITO REESE DO Start: 10-27-2004 Swelling of first metatarsophalangeal joint of hallux (disorder) DR MIGUELITO REESE DO Start: 10-27-2003 Swelling of first metatarsophalangeal joint of hallux (disorder) DR MIGUELITO REESE DO Start: 10-27-2003 Transplanted skin (b jihan structure) DR MIGUELITO REESE DO Start: 10-27-2000 Tonsil and adenoid s tructure (body structure) DR MIGUELITO REESE DO Plan of Treatment Date Care Activity Detail Author Hemoglobin A1c/Hemoglobin.total in Blood [facility] Liquid based cervical cytology screening [facility] Thyroid stimulating hormone measurement [facility] US Pelvis transvaginal [facility] Immunizations Immunization Date Immunization Notes Care Provider Fa wally 05-20-[address] MIGUELITO REESE DO [facility] 02-05-[address] MIGUELITO REESE DO [facility] Payers Date Payer Category Payer Private Health Insurance [id number] 2025 Self-pay 2025 Unknown [id number] 2023 Unknown [id number] 1995 Unknown [id number] 2.16.8 [id number] 1994 Unknown [id number] [id number] [facility] [id number] Unknown Unknown [id number] 2.16.8 [id number] Unknown [id number] 2.16.8 [id number] Unknown [id number] 2.16.8 [id number] Unknown [id number] 2.16.8 [id number] Unknown [id number] 2.16.8 [id number] Social History Date Type Detail Facility Engaged to be Engaged to be marri ed [facility] Work Phone: Start: 07-09-2021 End: 04-27-2025 Tobacco smoking status Never smoked tobacco (finding) [facility] Sex Assigned At Sex [facility] Tobacco smoking status NHIS Unknown if ever smoked [facility] Work Phone: Start: 1995 Sex Assigned At Female W [facility] Gender Identity Identifies as fe male gender (finding) [facility] Sexual Orientation Heterosexual (finding) [facility] NEGATED: Highlighted row - - [id number] [place] [address] M Work Phone: Functional Status Date Assessment Result Facility NEGATED: Highlighted row Functional performance Functional status health issues are not documented Disease [id number] [place] [address] M Work Phone: Mental Status Date Assessment Result Facility NEGATED: Highlighted row Cognitive function [Interpretation] Cognitive status health issues are not documented Disease [id number] [place] [address] M Work Phone: Clinical Notes 05-23-2021 to 05-02-2025 Note Date & Type Note Facility 05-02-2025 Radiology Diagnostic study note [facility] Imaging Services [address] [place], [place] [address] Transvaginal Non- MR#: [id number] Acct: [id number] Name: ELLY GANDHI Rep #: [id number] : 1995 F 30 From: Miguel Angel Diallo MD PCP: [facility] [place] Status: REG CLI Study:Transvaginal Non- Date of Exam: 05/02/25 Exam# [id number] Ordering Dr: Delma Moon CNM PROCEDURE: TRANSVAGINAL NON- 05/02/2025 REASON FOR EXAM: AMENORRHEA History of polycystic ovary syndrome. TECHNIQUE: TRANSVAGINAL NON- COMPARISON: None FINDINGS: LMP: February 13, 2025. Measurements: Uterus: 8.9 cm x 4.9 cm x 3.5 cm with a volume of 80.22 mL. Nabothian cyst. Endometrial Thickness: 5.7 mm. It is hyperechoic. Right Ovary: 3.8 cm x 2.8 cm x 2.4 cm with a volume of 13.09 mL. Small follicles are seen within the ovary. Left Ovary: 4.8 cm x 3.5 cm x 2.8 cm with a volume of 24.48 mL. Small folliclesare seen within the ovary. Uterus: Normal size, myometrial echotexture, and contour. Endometrium: Unremarkable. Right ovary: Multiple follicles are seen within the right ovary. Left ovary: Multiple follicles are seen within the left ovary. Other: US/Transvaginal Non- IMPRESSION: Multiple follicles are seen in both ovaries. Reading Location: [place] [address] CC: BENNETT Moon; PREP MANAGERParul Arguello ~ President Financial Institution: Signed [facility] 04-27-[address] [facility] 03-11-2025 Evaluation note Diagnosis Onset Date Resolution Acute sinusitis acute March 11, 2025 9:24am Secondary amenorrhea acute April 27, 2025 10:15am Encounter for routine gynecological examination noneactive April 27, 2025 10:15am [facility] Work Phone: 1([phone]) 595-448201-26-2024 Note. MICRO - Microbiology PROCEDURE: Urine Culture [*1] SOURCE: Urine BODY SITE: COLLECTED DATE/TIME: 11/18/2023 09:26 EST RECEIVED DATE/TIME: 11/19/2023 15:48 EST START DATE/TIME: 11/19/2023 15:49 EST FREE TEXT SOURCE: FINAL REPORTS Final Report [] Verified Date/Time/Personnel: 11/21/2023 08:22 EST 50,000 - 100,000 cfu/ml Escherichia coli PRELIMINARY REPORTS Preliminary Report [] Verified Date/Time/Personnel: 11/20/2023 13:56 EST 50,000 - 100,000 cfu/ml Escherichia coli NICOL to follow SUSCEPTIBILITY RESULTS Escherichia coli Antibiotic NICOL Dilut NICOL Inter Ampicillin <=8 Susceptible Ampicillin/ <=4/2 Susceptible Sulbactam Aztreonam <=4 Susceptible Cefazolin <=2 Susceptible Ciprofloxacin >2 Resistant Ertapenem <=0.5 Susceptible Gentamicin <=2 Susceptible ID Panel Not Not Applicable Applicable Imipenem <=1 Susceptible Levofloxacin >4 Resistant Meropenem <=1 Susceptible Minocycline <=4 Susceptible Nitrofurantoin <=32 Susceptible Trimethoprim/ <=0.5/9.5 Susceptible Sulfa Performing Locations *1: This test was performed at: [facility], [address] [place] [address], [phone] , [facility] ([place])05-23-2021 History of Present illness NarrativeStates that she was treated by telemedicine provider on May 23 for presumed UTI. She was placed onantibiotics, she believes it was Macrodantin, and finish the prescription. Presents now because theurinary frequency and urgency have returned today. No dysuria yet. No fever, chills, nausea, vomiting, stool changes, back or abdominal pain. Last menstrual period was about 4 weeks ago.-[facility] Work Phone: [phone] History of Present illness NarrativeStates that she was treated by telemedicine provider on May 23 for presumed UTI. She was placed onantibiotics, she believes it was Macrodantin, and finish the prescription. Presents now because theurinary frequency and urgency have returned today. No dysuria yet. No fever, chills, nausea, vomiting, stool changes, back or abdominal pain. Last menstrual period was about 4 weeks ago.[facility] Work Phone: Evaluation + Plan note No data available for this section [facility] Evaluation noteNo assessment information available [facility] Work Phone: Hospital Discharge instructions No data available for this section [facility] Progress note No data available for this section [facility] Progress note Author Delma Moon [facility] Note Date/Time April 27, 2025 11:10 am [facility] [address] [place] [address], [address] [place] [address] OFFICE VISIT Date of Service: 04/27/25 MR#: [id number] Acct: [id number] Name: Elly Gandhi Rep #: [id number] 1995 Provider: BENNETT Moon Age/Sex: 30/F Location: [facility] [place] Status: Signed Intake Vital Signs 03/11/25 09:35 04/27/25 10:28 04/27/25 10:36 Height 5 ft 4 in 5 ft 4 in 5 ft 4 in Weight: 184 lb 168 lb BMI 31.6 28.8 BP 120/86 H 115/80 Position Sitting Respiration 86 H Temp 98.2 F Pulse Oximetry (%) 98 Oxygen Delivery Method room air Intake 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 Is patient in pain?: No Allergies latex Allergy (Verified 04/27/25 10:29) severe infection Medications ?Medication ?Instructions ?Recorded ?Confirmed ?Type ascorbic acid (vitamin C) 250 mg 250 mg PO QDAY 04/27/25 History tablet cetirizine 10 mg tablet (Aller-Mehreen) 10 mg PO QDAY PRN 03/11/25 04/27/25 History multivitamin (Daily Multi-Vitamin 1 tab PO QAM 5 04/27/25 History tablet) clindamycin phosphate 1 % topical 1 applic topical QDA Y 04/27/25 04/27/25 History gel medroxyprogesterone 5 mg tablet 10 mg (2 x 5 mg) PO DA EREN 5 days 04/27/25 04/27/25 Rx (Provera) #10 tabs women's omega PO 04/27/25 History Is last menstrual period known: Yes Last Menstrual Period: 02/04/25 Post menopausal: No Patient : No : No Do you think of yourself as: straight/heterosexual Current gender identity: female Control Method: none PFSH Medical History (Updated 04/27/25 @ 10:48 by Demla Moon CNM) Skin cancer Surgical History (Updated 04/08/25 @ 13:43 by Rosio Aguilera) H/O skin graft History of tonsillectomy and adenoidectomy History of bunionectomy Family History (Updated 04/08/25 @ 13:45 by Rosio Aguilera) Grandmother Blood clot in leg Grandmother High cholesterol Mother Asthma Breast cancer Cervical cancer Diabetes Hypertension Hormone deficiency Melanoma Severe allergy Social History (Updated 04/27/25 @ 10:36 by Francine Mills) adopted: No household members: spouse housing: house number of children: 0 current occupational status: employed 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 pets and animals: Yes pets and animals: dog(s) history of recent travel: No sexually active: Yes Smoking Status: Never smoker second hand exposure: No alcohol intake: current alcohol intake frequency: holidays/special occasions only substance use type: does not use well-balanced diet: about half the time caffeine: No eating out: 1-3 times/week during the past year weight has: increased > 10 lbs what type of physical activity do you participate in: none greg/temple: [employer] seatbelt use: always do you feel safe at home: Yes additional social history: - Willie HPI Encounter for routine gynecological examination Details: Elly Gandhi is a 30 year old who presents for new annual exam. HX of PCOS and TTC. Stopped BC in April and had regular cycles until January-negative tests in february. discussed work up for infertility. PLan day 3 and day 21labs, TVUS and possible HSG. mother had breast cancer and had genetic testing and was neg. Last PAP: 2021 History of abnormal PAP: [] Last mammogram: age 39 History of abnormal mammogram: na Colon cancer screening: [] Other preventative health care screenings: PCP Female Reproductive History Last Menstrual Period: 02/04/25 Bleeding Duration: 4 Questions: metorrhagia: No, sexually active: Yes, dyspareunia: No and PCB: No ROS Const Constitutional: Reports system reviewed and no additional complaints, except as documented Cardio Card: Reports system reviewed and no additional complaints, except as documented Resp Resp: Reports system reviewed and no additional complaints, except as documented GI GI: Reports system reviewed and no additional complaints, except as documented : Reports system reviewed and no additional complaints, except as documented; Denies difficulty voiding, dysuria or urinary frequency Skin Skin/Breast: Reports system reviewed and no additional complaints, except as documented Neuro Neuro: Reports system reviewed and no additional complaints, except as documented Psych Psych: Reports system reviewed and no additional complaints, except as documented; Denies anhedonia, anxiety or depression Exam Const General: cooperative, healthy appearing, comfortable and no acute distress Orientation: alert, awake and oriented x3 Neck Neck: normal visual inspection and full ROM Thyroid: thyroid normal Chest Breast inspection: normal inspection of the breasts and normal inspection of the axillae Breast palpation: normal palpation of the breasts and normal palpation of the axillae Resp Effort & Inspection: normal respiratory effort, able to speak in complete sentences and symmetric chest movement GI Inspection: normal to inspection Palpation: soft Rectal Exam: visual inspection normal External Female Exam: normal external appearance and normal appearance of the urethra Urethra: normal appearance of the urethra Speculum Exam - Vagina: normal appearance of the vagina and normal vaginal discharge Speculum Exam - Cervix: normal appearance of the cervix and nontender Bimanual Exam- Vagina & Uterus: normal bimanual exam, normal palpation, uterine size normal, No tender and non-tender Bimanual Exam- Adnexa, other: normal Pelvic Support: normal Skin General: no rashes or lesions noted Neuro General: patient alert, patient awake and patient oriented x3 Cognition: normal cognition Speech: speech normal Gait: normal gait Extrem General: normal to inspection and full ROM Psych Appearance: grossly normal and well kempt Mental Status: mental status grossly normal Affect: normal affect Speech and Movement: speech and movement normal Attitude: cooperative Thought Process: normal Thought Content: normal Judgment: judgment good Coding Level of Care Code Off vis,new,prev 18-39yrs Diagnoses Encounter for routine gynecological examination Z01.419 Secondary amenorrhea N91.1 Assessment and Plan Assessment and Plan (1) Encounter for routine gynecological examination: (2) Secondary amenorrhea: Status: Acute Plan: TVUS progesterone challenge day 3 and day 21 labs timed intercourse consider HSG and SA start Inositol supplement Orders: Orders PAP IG HPV APTIMA 16/18,45 Today Transvaginal Non- Today N91.1 - Secondary amenorrhea Thyroid Stim Hormone (TSH) Today N91.1 - Secondary amenorrhea Hemoglobin A1c Today N91.1 - Secondary amenorrhea Medications: New medroxyprogesterone (Provera) 2 tabs daily for 5 days. Call office if no withdrawal bleed 10 mg (2 x 5 mg) PO DAILY 5 days 10 tabs 0RF N93.9 - Abnormal uterine and vaginal bleeding, unspecified Plan Details Additional Comments: Cervical cancer screening: today Breast cancer screening: age 40 STD prevention and contraceptive options including their risks, benefits, and alternatives were reviewed with the patient and she chooses: denies Encouraged maintenance of a healthy weight and active lifestyle and handout given. Calcium/vitamin D recommendations provided. Annual exam handout including recommendations for good health guidelines and basic screening information given. Problem list up to date, see problem list details for any additional plan information. follow up in one year for annual health maintenance exam or sooner if needed. 04/27/25 1110 <Electronically signed by Delma chung CNM> Date _ Delma Moon CNM Cosigner Signature: Date (if applicable) CC: ~ [facility] Work Phone: Reason for referral (narrative)No reason for referral information availableBlGlendale [facility] Work Phone: Summary Purpose Family History No Family History Records Found Relationship Condition Age at Onset Recorded Date/T tegan grandmother Blood clot in leg Unknown grandmother High blood cholesterol Unknown mother Asthma Unknown Malignant neoplasm of breast Unknown Malignant neoplasm of cervix Unknown Diabetes mellitus Unknown Hypertension Unknown Hormone deficiency Unknown Malignant melanoma Unknown Severe allergy Unknown Advance Directives No Advanced Directives Records FoundNo Advanced Directives Records FoundNo Advanced Directives Records FoundNo Advanced Directives Records FoundNo Advanced Directives Records FoundNo Advanced Directives Records Found Chief Complaint and Reason for Visit Chief Complaint Admit Date sore throat, bilat ear pain March 11 9:24am Chief Complaint Admit Date sore throat, bilat ear pain March 11 9:24am 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, 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 Reason for Visit Admit Date Acute sinusitis March 11, 2025 9:24a m Secondary amenorrhea April 27, 2025 10:1 5am Encounter for routine gynecological exam ination April 27, 2025 10:15am Chief Complaint Admit Date sore throat, bilat ear pain March 11 9:24am 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, 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 AMENORRHEA May 02, 2025 7:41a m Additional Source Comments INFORMATION SOURCE (unrecogn ized section and content) DATE CREATED AUTHOR 04/24/2018 [facility] DATE CREATED AUTHOR AUTHOR'S ORGANIZ ATION 04/24/2018 [facility] DATE CREATED AUTHOR AUTHOR'S ORGANIZ ATION 06/03/2021 [employer] DATE CREATED AUTHOR AUTHOR'S ORGANIZ ATION 11/24/2021 [facility] DATE CREATED AUTHOR AUTHOR'S ORGANIZ ATION 11/22/2023 [facility] ([place]) DATE CREATED AUTHOR AUTHOR'S ORGANIZ ATION 05/16/2025 [facility] Patient Care team informatio n (unrecognized section and content) Team Status: Inactive Member Role Status Dates JAMEL Hdz Attending Provider Active Sta rt: March 11, 2025 End: March 11, 2025 Team Status: Active Member Role/Relationship Status Dates Carolyn Arguello NP-C Primary Care Provider Active Team Status: Inactive Member Role/Relationship Status Dates JAMEL Hdz Attending Provider Active Sta rt: March 11, 2025 End: March 11, 2025 Team Status: Inactive Member Role/Relationship Status Dates Delma Moon CNM Attending Provider Active S tart: April 27, 2025 End: April 27, 2025 Carolyn Arguello NP-C Primary Care Provider Active Start: April 27, 2025 End: April 27, 2025 [facility] [place] Referring Provider Active St art: April 27, 2025 End: April 27, 2025 Team Status: Inactive Member Role/Relationship Status Dates [facility] [place] Primary Care Provider Active Start: April 27, 2025 End: April 27, 2025 Delma Moon CNM Attending Provider Active S tart: April 27, 2025 End: April 27, 2025 Delma Moon CNM Referring Provider Active S tart: April 27, 2025 End: April 27, 2025 Team Status: Active Member Role/Relationship Status Dates Carolyn Arguello NP-C Primary Care Provider Active Start: May 02, 2025 Delma Moon CNM Attending Provider Active S tart: May 02, 2025 Delma Moon CNM Referring Provider Active S tart: May 02, 2025 Team Status: Inactive Member Role/Relationship Status Dates Carolyn Arguello PREP MANAGER-C Primary Care Provider Active Start: May 02, 2025 End: May 02, 2025 Delma Moon CNM Attending Provider Active S tart: May 02, 2025 End: May 02, 2025 Delma Moon CNM Referring Provider Active S tart: May 02, 2025 End: May 02, 2025 Team Status: Active Member Role/Relationship Status Dates Carolyn Arguello PREP MANAGER-C Primary Care Provider Active Start: May 06, 2025 Delma Moon CNM Attending Provider Active S tart: May 06, 2025 Delma Moon CNM Referring Provider Active S tart: May 06, 2025 Team Status: Inactive Member Role/Relationship Status Dates Carolyn Jos PREP MANAGER-C Primary Care Provider Active Start: May 06, 2025 End: May 06, 2025 Delma Moon CNM Attending Provider Active S tart: May 06, 2025 End: May 06, 2025 Delma Moon CNM Referring Provider Active S tart: May 06, 2025 End: May 06, 2025 Goals (unrecognized section and content) Goals may be documented in a n alternate section FOR RECORDS PERTAINING TO PATIENTS WHO ARE OR HAVE BEEN ENROLLED IN A CHEMICAL DEPENDENCY/SUBSTANCEABUSE PROGRAM, SOME INFORMATION MAY BE OMITTED. This clinical summary was aggregated from multiple sources. Caution should be exercised in using it in the provision of clinical care. This summary normalizes information from multiple sources, and as a consequence, information in this document may materially change the coding, format and clinical context of patient data. In addition, data may be omitted in some cases. CLINICAL DECISIONS SHOULD BE BASED ON THE PRIMARY CLINICAL RECORDS. [facility] [employer] [facility]. provides no warranty or guarantee of the accuracy or completeness of information in this document.
[2025-05-26 04:07] LABS: PROGESTERONE 0.3 ng/mL (.)
== END | disposition home or self-care (01) ==
LOC: BWCLAB 09:12
PROVIDERS: Advanced Practice Midwife; PCP Nurse Practitioner Family; Visit Provider Nurse Practitioner Family
DX: Z87.42 Personal history of other diseases of the female genital tract (principal); N91.1 Secondary amenorrhea
CPT/HCPCS: 36415; 84144

== ENCOUNTER → 2025-09-09 | Outpatient (CLI) | payer OTHER, SELFPAY ==
--- NOTE | 2025-09-09 11:52 | RAD_ITS ---
PROCEDURE: SALPINGOGRAM 09/09/2025 REASON FOR EXAM: HSG FOR INFERTILITY TECHNIQUE: Procedure Code: RADSAL Modality: DX Procedure: SALPINGOGRAM. A hysterosalpingogram was performed by the resident doctor. Fluoroscopy: 41.6 seconds. Radiation dose: 10.6 mGy. COMPARISON: None FINDINGS: Contrast was injected. The uterus is unremarkable. There is patency and spill of the left fallopian tube. Patency and spill from the right fallopian tube. RAD/Salpingogram IMPRESSION: Normal hysterosalpingogram. Reading Location: [place] [address]
== END | disposition home or self-care (01) ==
LOC: RAD 11:51
PROVIDERS: PCP Nurse Practitioner Family; Referring Provider Advanced Practice Midwife; Visit Provider Advanced Practice Midwife
DX: N97.0 Female infertility associated with anovulation (principal)
CPT/HCPCS: 58340; 74740; Q9967

== ENCOUNTER → 2025-09-23 | Outpatient (CLI) | payer OTHER, SELFPAY ==
--- OUTSIDE RECORDS SUMMARY | 2025-09-23 08:34 | XMS RPT_ITS | CCD ---
Author Organization [facility] Care Team Providers Care Protozoology Teacher Name Role Phone Melanie De Paz Unavailable Unavailable Melanie De Paz Unavailable Unavailable Melanie De Paz Unavailable Unavailable Melanie De Paz Unavailable Unavailable Petrona Burnette Unavailable Unavailable Petrona Alexander Unavailable Unavailable Unknown, Referring Provider Unavailable Unav ailable Unavailable Unavailable Unavailable Unavailable Unavailable DR MIGUELITO REESE DO Attending Unavailable DARIEN RESIDENTIAL TEAM LEADER-TEACHER SELECTION SPECIALIST, SAMUEL A Primary Care Un available DARIEN RESIDENTIAL TEAM LEADER-TEACHER SELECTION SPECIALIST, SAMUEL A Attending Un available DARIEN RESIDENTIAL TEAM LEADER-TEACHER SELECTION SPECIALIST, SAMUEL A Primary Care Un available DARIEN RESIDENTIAL TEAM LEADER-TEACHER SELECTION SPECIALIST, SAMUEL A Primary Care Physi [place] Russell Robison Attending Provider [phone] Delma Moon CNM Attending Provider Jos JAVA SWING DEVELOPER-C, Carolyn Primary Care Provider Jos JAVA SWING DEVELOPER-C, Carolyn Referring Provider [phone] Delma Moon CNM Referring Provider [phone] Jos JAVA SWING DEVELOPER-C, Carolyn Attending Provider Delma Moon Attending Unavailable Delma Moon Referring Unavailable Jos, Carolyn Primary Care Unavailable Delma Mono Attending Unavailable Delma Moon Referring Unavailable Jos, Carolyn Primary Care Unavailable Delma Moon Attending Unavailable Delma Moon Referring Unavailable Jos, Carolyn Primary Care Unavailable Jos, Carolyn Attending Unavailable Jos, Carolyn Primary Care Unavailable Delma Moon Attending Unavailable Jos, Carolyn Referring Unavailable Jos, Carolyn Primary Care Unavailable Russell Robison Attending Unavailable Delma Moon Attending Unavailable Jos, Carolyn Primary Care Unavailable Jos, Carolyn Referring Unavailable Allergies Allergy Classification Reported Allergen(s) Allergy Type Date of Onset Reaction(s) Facility (6 sources) Latex Allergy to substance 5 severe infection [facility] (1 source) Latex Drug allergy (disorder) 5 [facility] Repository Medications Current Medications Medication Drug Class(es) Dates Sig (Normalized) Sig (Original) ascorbic acid 250 mg oral tablet (6 sources) Vitamin C Start: 03-11-2025 take 1 [...] 0 Refill(s), 11/25/23 4:38:00 PM EST, Pharmacy: [facility]/pharmacy #[id number], 162.6, cm, 09/24/23 16:15:00 EST, Height, 72, kg, 09/24/23 16:15:00 EST, Dosing Weight Start Date: 11/18/23 Stop Date: 11/25/23 Status: Ordered cetirizine hydrochloride 10 mg oral tablet (6 sources) Histamine-1 Receptor Antagonist Start: 03-11-2025 take 1 tablet by mouth once daily as needed Cetirizine (Aller-Mehreen) 10 mg tablet Active 10 mg PO daily as needed March 11, 2025 12:00am clindamycin 0.01 mg/mg topical gel (6 sources) Lincosamide Antibacterial Start: 04-27-2025 Clindamycin Phosphate 1 % gel Active 1 NMA TOPICAL daily April 27, 2025 12:00am Start: 09-24-2023 End: 09-18-2024 clindamycin 1% topical gel A pply 1 jane, Topical, BID, please provide 3, 30 gram tubes at each refill if insurance approves 30 day supply., # 30 gram(s), 3 Refill(s), Pharmacy: [facility], Gel, 162.6, cm, 09/24/23 16:15:00 EST, Height, 72, kg, 09/24/23 16:15:00 EST, Dosing Weight Start Date: 09/24/23 Stop Date: 09/18/24 Status: Ordered Multivitamin (Daily Multi-Vitamin) tablet (6 sources) Start: 03-11-2025 Multivitamin ( Daily Multi-Vitamin) tablet Active 1 {tbl} PO EVERY MORNING March 11, 2025 12:00am spironolactone 25 mg oral tablet (1 source) Aldosterone Antagonist Start: 10-28-2023 End: 10-22-2024 spironolactone 25 mg oral tablet Dose : 25 mg = 1 tab(s), Oral, qDay, # 90 tab(s), 3 Refill(s), Pharmacy: [facility], Acne, 162.6, cm, 09/24/23 16:15:00 EST, Height, kg, 09/24/23 16:15:00 EST, Dosing Weight Start Date: 10/28/23 Stop Date: 10/22/24 Status: Ordered women's omega (5 sources) Start: 04-27-2025 women's omega Active PO April 27, 2025 12:00am Completed/Discontinued Medications Medication Drug Class(es) Dates Sig (Normalized) Sig (Original) amoxicillin 875 mg / clavulanate 125 mg oral tablet (5 sources) Penicillin-class Antibacterial Start: 03-11-2025 End: 03-21-2025 [...] Start : 01-Jun-2019 Active 28 Tablet Pack letrozole 2.5 mg oral tablet (1 source) Aromatase Inhibitor Start: 05-26-2025 End: 05-31-2025 Letrozole 2.5 mg tablet Discontinued 2.5 mg PO DAILY 5 5 0 May 26, 2025 12:00am May 30, 2025 12:00am May 31, 2025 12:08am Polycystic ovary syndrome Infertility Polycystic ovarian syndrome begin between days 2 and 5 of menstrual cycle medroxyPROGESTERone acetate 5 mg oral tablet (5 sources) Progestin Start: 04-27-2025 End: 05-02-2025 take [...] Classification Problem Date Documented Date Episodic/Chronic Asthma (6 sources) Asthma; Translations: [Unspecified asthma, uncomplicated] 03-11-2025 Chronic Contraceptive and procreative management (3 sources) Oral contraception status; Translations: [Surveillance of contraceptive pill] Episodic Female infertility (1 source) Female infertility associated with anovulation; Translations: [Female infertility associated with anovulation] Onset: 05-12-2025 Chronic Genitourinary symptoms and ill-defined conditions (6 sources) Dysuria; Translations: [Dysuria] Onset: 11-18-2023 Episodic Menstrual disorders (11 sources) Secondary amenorrhea; Translations: [Secondary amenorrhea] Onset: 08-26-2025 04-27-2025 Chronic Comment on above: Day 3 and 21 labs, T SH normal, TVUS Day 3 and 21 labs, T SH normal, TVUS-PCOS, Letrozole 2.5 ordered 05/26 Other endocrine disorders (1 source) Polycystic ovary syndrome 01-07-2022 Chronic Other female genital disorders (1 source) Abnormal uterine and vaginal bleeding, unspecified; Translations: [Abnormal uterine and vaginal bleeding, unspecified] Onset: 08-26-2025 Chronic Other female genital disorders (5 sources) History of gynecological disorder; Translations: [Personal history of other diseases of the female genital tract] 04-27-2025 Episodic Comment on above: on TVUS on TVUS & OAR Other female genital disorders (1 source) Personal history of other diseases of the female genital tract; Translations: [Personal history of other diseases of the female genital tract] Onset: 06-02-2025 Episodic Other skin disorders (1 source) Acne 01-07-2022 Episodic Other skin disorders (1 source) Hirsutism 01-07-2022 Episodic Other upper respiratory infections (10 sources) Acute sinusitis; Translations: [Acute sinusitis, unspecified] 03-11-2025 Episodic Unclassified (1 source) Unknown / UNK(Unknown) Onset: 04-17-2018 Unclassified (1 source) Patient encounter status 03-26-2022 Past or Other Problems Problem Classification Problem Date Documented Da te Episodic/Chronic Other screening for suspected conditions (not mental disorders or infectious disease) (1 source) Encounter for screening for malignant neoplasm of cervix; Translations: [Encounter for screening for malignant neoplasm of cervix] Onset: 05-05-2025 Episodic Unclassified (1 source) Z01.419 N39.0 N76.0 Onset: 04-17-2018 Results Test Name Value Interpretation Reference Range Facility English Language Learner Tutor Office Visit Reporton 08-26-2025 English Language Learner Tutor Office Visit Report [facility] [address], [address] [place] [address] OFFICE VISIT Date of Service: 08/26/25 MR#: [id number] Acct: [id number] Name: ELYL GANDHI Rep #: [id number] : 1995 Provider: BENNETT Sandhu ams Age/Sex: 30/F Location: [facility] Status: Signed Intake Vital Signs 04/27/25 10:36 08/26/25 11:15 Height 5 ft 4 in 5 ft 4 in Weight: 191 lb 8 oz BMI 32.8 BP 138/93 H Intake Visit Reasons: AMENORRHEA (Neg preg Test) Chief Complaint: Amenorrhea Concrete Pump Operator Required: No Is patient in pain?: No Allergies latex Allergy (Verified 08/26/25 11:14) severe infection Medications ???Medication ???Instructions ???Recorded ???Confirmed ???Type ascorbic acid (vitamin C) 250 mg 250 mg PO QDAY 03/11/25 08/26/25 H istory tablet cetirizine 10 mg tablet (Aller-Mehreen) 10 mg PO QDAY PRN 03/11/2507/29 History multivitamin (Daily Multi-Vitamin 1 tab PO QAM 03/11/25 08/26/25 Hi story tablet) women's omega PO 04/27/25 08/26/25 History inositol 500 mg capsule mg PO 08/26/25 08/26/25 History medroxyprogesterone 5 mg tablet 10 mg (2 x 5 mg) PO DAILY 5 days 1 08/26/25 Rx (Provera) #10 tabs Is last menstrual period known: Yes Last Menstrual Period: 05/05/25 Post menopausal: No : No PFSH Medical History Skin cancer Surgical History H/O skin graft History of tonsillectomy and adenoidectomy History of bunionectomy Family History Grandmother Blood clot in leg Grandmother High cholesterol Mother Asthma Breast cancer Cervical cancer Diabetes Hypertension Hormone deficiency Melanoma Severe allergy Social History adopted: No household members: spouse housing: house number of children: 0 current occupational status: employed 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 Had withdrawal bleed with Provera, Letrozole was ordered but then she did not start another period so she was not able to start Letrozole or get repeat 21 day labs done. Provera reordered with refills, will call for HSG with menses and start Letrozole. Planning for day 21 Progesterone draw to evaluate dosing of Letrozole. Female Reproductive History Last Menstrual Period: 05/05/25 Questions: sexually active: Yes, dyspareunia: No and PCB: [...] and no additional complaints, except as documented Skin Skin/Breast: Reports system reviewed and no additional complaints, except as documented Neuro Neuro: Reports system reviewed and no additional complaints, except as documented Psych Psych: Reports system reviewed and no additional complaints, except as documented Exam Const General: cooperative, healthy appearing, comfortable and no acute distress Orientation: alert, awake and oriented x3 Neck Neck: normal visual inspection and full ROM Resp Effort Inspection: normal respiratory effort, able to speak in complete sentences and symmetric chest movement Skin General: no rashes or lesions noted [...] normal Thought Content: normal Judgment: judgment good Results POC Urine Office P (more content not included)... Normal [facility] PROGESTERONE 4317on 05-26-20 25 PROGESTERONE 0.3 ng/mL Normal . [facility] Comment on above: Order Comment: N day21 progesterone level Result Comment: Foll icular phase 0.1 - 0.9 Luteal phase 1.8 - 23.9 Ovulation phase 0.1 - 12.0 First trimester 11.0 - 44.3 Second trimester 25.4 - 83.3 Third trimester 58.7 - 214.0 Postmenopausal 0.0 - 0.1 Performed at: - [facility] [id number] Smokehouse Worker: Leonard Valladares PhD, Phone: [phone] Performed By: #### L 635.5913 #### [facility] [address] [place], [address] Hemoglobin A1con 05-06-2025 HbA1c (Bld) [Mass fraction] 5.0 % Normal <=5.6 [facility] Comment on above: Result Comment: Norm al < 5.7 % Prediabetic 5.7 - 6.4 % Diabetic >or= 6.5 % Please note range changes. Performed By: #### L 501.9520, L900.0111, L501.9985 #### [facility] [address] [place], [place], [address] Hemoglobin A1c percentageOrd ered By: Delma Moon on 05-06-2025 HbA1c (Bld) [Mass fraction] 5.0 % <5.7 [facility] Comment on above: Normal < 5.7 % Predi abetic 5.7 - 6.4 % Diabetic >or= 6.5 % Please note range changes. L900.0111on 05-06-2025 REPROSOURCE SEE SCANNED REPORT Normal [facility] Comment on above: Performed By: #### L 501.9520, L900.0111, L501.9985 #### [facility] [address] [place], [place], [address] No Panel InformationOrdered By: Delma Moon on 05-06-2025 Miscellaneous Test Comment SEE SCANNED REPORT [facility] TSH DL <= 0.005 mIU/L QnOrde red By: Delma Moon on 05-06-2025 TSH Qn 1.360 uIU/mL 0.300-4.200 [facility] Thyroid Stim Hormone (TSH)on 05-06-2025 TSH 1.360 uIU/mL Normal 0.300-4.200 [facility] Comment on above: Performed By: #### L 501.9520, L900.0111, L501.9985 #### [facility] [address] [place], [place], [address] PAP IG HPV APTIMA 16/18,45on 05-03-2025 ADEQ Comment Normal . [facility] Comment on above: Order Comment: Speci men Comment: [id number] Specimen Comment: No. of containers..01 ThinPrep Vial Result Comment: Sati sfactory for evaluation. No endocervical component is identified. Performed By: #### L 7400.0280 #### [facility] [address] [place], [address] COMM . Normal . [facility] Comment on above: Order Comment: Speci men Comment: [id number] Specimen Comment: No. of containers..01 ThinPrep Vial Performed By: #### L 7400.0280 #### [facility] [address] [place], [address] COMMENT Comment Normal . [facility] Comment on above: Order Comment: Speci men Comment: [id number] Specimen Comment: No. of containers..01 ThinPrep Vial Result Comment: This liquid based ThinPrep(R) pap test was screened with the use of an image guided system. Performed By: #### L 7400.0280 #### [facility] [address] [place], [address] DIAG Comment Normal . [facility] Comment on above: Order Comment: Speci men Comment: [id number] Specimen Comment: No. of containers..01 ThinPrep Vial Result Comment: NEGA TIVE FOR INTRAEPITHELIAL LESION OR MALIGNANCY. Performed By: #### L 7400.0280 #### [facility] [address] [place], [address] HPV APTIMA, HR Negative Normal Negative [facility] Comment on above: Order Comment: Speci men Comment: [id number] Specimen Comment: No. of containers..01 ThinPrep Vial Result Comment: This nucleic acid amplification test detects fourteen high- risk HPV types (16,18,31,33,35,39,45,51,52,56,58,59,66,68) without differentiation. Performed By: #### L 7400.0280 #### [facility] [address] [place], [address] HPV Claire Rfx Comment Normal . [facility] Comment on above: Order Comment: Speci men Comment: [id number] Specimen Comment: No. of containers..01 ThinPrep Vial Result Comment: Crit eria not met, HPV Genotype not performed. Performed at: - [facility] [id number] Smokehouse Worker: Leonela Campbell MD, Phone: [phone] Performed at: = - [facility] [address] [facility], [place] [id number] Smokehouse Worker: Leonela Campbell MD, Phone: [phone] Performed By: #### L 7400.0280 #### [facility] [address] [place], [place], [address] PAPSMR Comment Normal . [facility] Comment on above: Order Comment: Speci men Comment: [id number] Specimen Comment: No. of containers..01 ThinPrep Vial Result Comment: The Pap smear is a screening test designed to aid in the detection of premalignant and malignant conditions of the uterine cervix. It is not a diagnostic procedure and should not be used as the sole means of detecting cervical cancer. Both false-positive and false-negative reports do occur. Performed By: #### L 7400.0280 #### [facility] [address] [place], [place], [address] PERFORM Comment Normal . [facility] Comment on above: Order Comment: Speci men Comment: [id number] Specimen Comment: No. of containers..01 ThinPrep Vial Result Comment: Gee Fatima Supervisor Roving (ASCP) Performed By: #### L 7400.0280 #### [facility] [address] [place], [address] Transvaginal Non-on 05-02-2025 Transvaginal Non- [facility] [address] [place], [place] [address] Transvaginal Non- MR#: [id number] Acct: [id number] Name: ANUPAMA GANDHIOTHY HILARY Rep #: [id number] : 1995 F 30 From: Chance lewis MD PCP: [facility] Status: REG CLI Study: Transvaginal Non- Date of Exam: Exam# [id number] Ordering Dr: Delma Moon CNM PROCEDURE: TRANSVAGINAL [...] are seen in both ovaries. Reading Location: [place] [address] CC: BENNETT Moon; JAVA SWING DEVELOPER-C Carolyn Arguello Intelligence Agent: Signed Normal [facility] Cervical or vaginal specimen microscopic examination by liquid based cytology (reportOrdered By: Delma Moon on 04-27-2025 Cytology report Cyto stain.thin prep Doc (Cvx/Vag) Comment . [facility] Comment on above: Criteria not met, HP V Genotype not performed.Performed at: - [facility] [id number] Director: Leonela Campbell MD, Phone: [phone] at: = - [facility] [id number] Director: Leonela Campbell MD, Phone: [phone] Cervical or vagninal specime n microscopic examination by cytology stain (reported asOrdered By: Delma Moon on 04-27-2025 Cytology report Cyto stain Doc (Cvx/Vag) Comment . [facility] Comment on above: The Pap smear is [...] DNA Probe+sig amp Ql (Cvx) Negative Negative [facility] Comment on above: This nucleic acid am plification test detects fourteen high-risk HPV types (16,18,31,33,35,39,45,51,52,56,58,59,66,68)without differentiation. Laboratory - CytologyOrdered By: Delma Moon on 04-27-2025 Supervisor Roving Cyto stain Nom (Cvx/Vag) [ID] Comment . [facility] Comment on above: Shawn Fatima, Cyto logist (ASCP) Laboratory - Miscellaneous t estsOrdered By: Delma Moon on 04-27-2025 Service comment (Unsp spec) [Interp] . . [facility] No Panel InformationOrdered By: Delma Moon on 04-27-2025 Pap Smear Specimen Adequacy Comment . [facility] Comment on above: Satisfactory for vikram luation. No endocervical component is identified. English Language Learner Tutor Office Visit Reporton 04-27-2025 English Language Learner Tutor Office Visit Report [facility] [address], [address] [place] [address] OFFICE VISIT Date of Service: 04/27/25 MR#: [id number] Acct: [id number] Name: Elly Gandhi Rep #: [id number] : 1995 Provider: BENNETT Sandhu ams Age/Sex: 30/F Location: [facility] [place] Status: Signed Intake Vital Signs 03/11/25 09:35 04/27/25 10:28 04/27/25 10:36 Height 5 ft 4 in 5 ft 4 in 5 ft 4 in Weight: 184 lb 168 lb BMI 31.6 28.8 BP 120/86 H 115/80 Position Sitting Respiration 86 H Temp 98.2 F Pulse Oximetry (%) 98 Oxygen Delivery Method room air Intake Visit Reasons: 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 Required: No Is patient in pain?: No [...] 0 current occupational status: employed 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 Normal [facility] Urgent Care Visit Reporton 0 03-11-2025 Urgent Care Visit Report [facility] [address], [address] [place] [address] OFFICE VISIT Date of Service: 03/11/25 MR#: [id number] Acct: [id number] Name: Elly Gandhi Rep #: [id number] : 1995 Provider: JAMEL Jeffrey Age/Sex: 29/F Location: [facility] [place] Status: Signed Intake Vital Signs 03/11/25 09:35 [...] fri and but this morning no fever. [facility] Surgical History (Updated 03/11/25 @ 09:31 by [...] Code Off vis,new,level 3 Diagnoses Acute sinusitis Assessment and Plan Assessment and Plan (1) [...] Weathers Signature: Date (if applicable) CC: Normal [facility] AMPICILLIN:SUSC:PT:ISOLATE:O RDQN:MICon 11-18-2023 Ampicillin NICOL [Susc] 50,000 - 100,000 cfu/ml Escherichia coli [facility] [place] Ampicillin NICOL [Susc]on 10-28 Escherichia coli Escherichia coli [facility] .GFRon 10-16-2023 GFR 81 ml/min/1.73sqm Normal [facility] ([place]) Comment on above: Result Comment: GFR Population [...] Performed By: #### G , CMP #### [address] [address] GFR Non- 67 ml/min/1.73sqm Normal [facility] ([place] Comment on above: Result Comment: GFR Population [...] Performed By: #### G FR, CMP #### [address] [address] CMPon 10-16-2023 Albumin Level 3.5 G/dL Normal 3.5-5.0 [facility] ([place]) Comment on above: Performed By: #### G FR, CMP #### [address] [address] Albumin/Globulin [Mass ratio] 1.0 {ratio} Low 1.1-2.5 [facility] ([place] Comment on above: Performed By: #### G , CMP #### [address] [address] ALP [Catalytic activity/Vol] 47 U/L Normal 40-135 [facility] ([place] Comment on above: Performed By: #### G , CMP #### [address] [address] ALT [Catalytic activity/Vol] 15 U/L Normal 14-59 [facility] ([place] Comment on above: Performed By: #### G , CMP #### [address] [address] AST [Catalytic activity/Vol] 11 U/L Normal 10-40 [facility] ([place] Comment on above: Performed By: #### Shannen ESQUEDA, CMP #### [address] [address] Bili Total 0.6 mg/dL Normal 0.2-1.0 [facility] ([place] Comment on above: Result Comment: Use of this assay is not recommended for patients undergoing treatment with eltrombopag due to the potential for falsely elevated results. Performed By: #### G , CMP #### [address] [address] BUN/Creatinine Ratio 14 ratio Normal 7-27 [facility] ([place]) Comment on above: Performed By: #### G , CMP #### [address] [address] Calcium [Mass/Vol] 9.4 mg/dL Normal 8.4-10.2 [facility] ([place]) Comment on above: Performed By: #### G , CMP #### [address] [address] Chloride [Moles/Vol] 104 mmol/L Normal 98-107 [facility] ([place]) Comment on above: Performed By: #### G FR, CMP #### [address] [address] CO2 [Moles/Vol] 27 mmol/L Normal 22-29 [facility] ([place]) Comment on above: Performed By: #### G FR, CMP #### [address] [address] Creatinine [Mass/Vol] 0.98 mg/dL Normal 0.55-1.02 [facility] ([place]) Comment on above: Performed By: #### G FR, CMP #### [address] [address] Electrolyte Balance 12.0 mEq/L Normal 4.0-15.0 [facility] ([place]) Comment on above: Performed By: #### G FR, CMP #### [address] [address] Globulin 3.6 G/dL Normal [facility] ([place]) Comment on above: Performed By: #### G FR, CMP #### [address] [address] Glucose [Mass/Vol] 99 mg/dL Normal 70-105 [facility] ([place]) Comment on above: Performed By: #### G FR, CMP #### [address] [address] Potassium [Moles/Vol] 4.3 mmol/L Normal 3.5-5.1 [facility] ([place]) Comment on above: Performed By: #### G FR, CMP #### [address] [address] Sodium [Moles/Vol] 143 mmol/L Normal 136-145 [facility] ([place]) Comment on above: Performed By: #### G FR, CMP #### [address] [address] Total Protein 7.1 G/dL Normal 6.4-8.2 [facility] ([place]) Comment on above: Performed By: #### G FR, CMP #### [facility] [address] [place], [place] [address] Urea nitrogen [Mass/Vol] 14 mg/dL Normal 7-18 [facility] ([place]) Comment on above: Performed By: #### G FR, CMP #### [facility] [address] [place], [place] [address] Cult, Urineon 06-03-2021 Bacteria identified Cx Nom (U) PATIENT: ELLY MAGAÑA LOCATION: [address]#: [id number] : [birth year] AGE: SEX: F ORDERED BY: [...] 0;For: Dysuria; VAIBHAV = N; Sent To: [id number] Cult, Urine; Status:In Progress - Specimen/Data Collected; Done: [id number] Perform:Lab Services - Office to Draw (Non-Blood Test); Due:01Sep2021;Ordere d; For:Dysuria; Ordered By:Daphney Contreras; Patient Discussion/Summary [...] CULTURE,BACTERIALon URINE CULTURE,BACTERIAL PATIENT: ELLY MAGAÑA LOCATION: 66 BILL#: [id number] : 89 AGE: SEX: F ORDERED BY: DAPHNEY CONTRERAS SOURCE: URINE COLLECTED: 06/03/21 13:54 ANTIBIOTICS AT STACE[facility].: RECEIVED : 06/04/21 03:22 SITE: Unspecified R E S U L T S URINE CULTURE,BACTERIAL FINAL 06/05/21 08:55 NO SIGNIFICANT GROWTH. Normal [facility] Comment on above: Performed By: #### U [facility] #### [facility] [address] [place] [address] DATA PROCESSING OPERATOR - Office Visiton 08-27 DATA PROCESSING OPERATOR - Office Visit Chief Complaint Patient here [...] Oral Tablet; TAKE 1 TABLET DAILY; Therapy: [id number] to (Evaluate:24Aug2019) Requested for: 31Aug2019; Last Rx:[id number] Ordered Rx By: Melanie De Paz; Dispense: 84 Days ; #:3 X 28 Tablet Pack; Refill: 0;For: Family planning, BCP ( control pills) maintenance; VAIBHAV = N; Verified Transmission to [facility]; Last Updated By: Paty Hernández; 08/31/2019 12:30:44 AM Vitals Vital Signs Recorded: 08Sep2020 02:28PM Eebirdgxrqu89.7 F, Temporal Iglzdtvg124, RUE, Sitting Ogjquhxct69, RUE, Sitting Blood Pressure Cuff SizeAdult Height5 ft 4 in Tgcnmp396 lb 2 oz BMI Oglcnucrpg98 BSA Calculated1.79 OJQ54Jzv1062 Physical Exam Constitutional: Alert and in no [...] maintenance; VAIBHAV = N; Verified Transmission to [facility] (Mail Order); Last Updated By: Paperlinks; 09/08/2020 2:47:41 PM Provider Impressions Pt presents fro annual FRONT FACER exam and refill of OCPs. Last pap was 07/2018 (neg.). Pt is happy on her current COCPs. She declined any other testing. Planning a wedding next year. Impression:. normal FRONT FACER exam. Current Status:. Her condition is stable. Treatment Plan:. RX- Sptrintec F/u in 1 year and as needed. Signatures Electronically signed by : JOSÉ MANUEL Fernandez; Sep 08 2020 6:18PM EST (Author) Normal [facility] CYTOLOGY SPECIMENon 04-24-20 18 CYTOLOGY SPEC [facility] Comment on above: Order Comment: Comme nt: THIN PREP PAP, HPV REFLEX Result Comment: Note : Specimens received on or after June:* Reports will be faxed to all physician's office.If you are a physician or have access to Viki:* Pathology and Cytology reports are located in Viki [facility] in the folder labeled Medical Record Forms.* Reports are also in the Physician Portal.* For assistance locating reports call: (LAB) [phone] Performed By: #### L CYTO ####[place] [address] [place] [address] CHLAMYDIA/GCon 04-21-2018 CHLAMYDIA/GC C.TRACHOMATIS METHOD: NUCLEIC ACID AMP Negative N.GONORRHOEAE METHOD: NUCLEIC ACID AMP Negative [facility] Comment on above: Performed By: #### M CHLAMGC ####[facility] [address] [place] [address] N. gonorrhoeae/C. trachomati s, Amplifiedon 04-17-2018 Chlamydia trachomatis, Amplified Negative Normal Negative [facility] Comment on above: Performed By: #### [facility] ####[facility] [address] [place] [address] GC/CHLAM/TRICA Source Swab-Endocerv Normal [facility] Comment on above: Performed By: #### [facility] ####[facility] [address] [place] [address] Neisseria gonorrhoeae, Amplified Negative Normal Negative [facility] Comment on above: Performed By: #### [facility] ####[facility] [address] [place] [address] Vital Signs Date Time Vital Sign Value Performing Clinician Facility 04-27-2025 10:36-0400 Body height 162.56 cm Carolyn YIP Work Phone: [facility] 04-27-2025 10:28-0400 Body mass index (BMI) [Ratio] 28.8 kg/m2 Carolyn Arguello JAVA SWING DEVELOPER-C Work Phone: [facility] 04-27-2025 10:28-0400 Body weight 76.2 kg Carolyn Arguello JAVA SWING DEVELOPER-C Work Phone: [facility] 04-27-2025 10:28-0400 Diastolic blood pressure 80 mm[Hg] Carolyn Arguello JAVA SWING DEVELOPER-C Work Phone: [facility] 04-27-2025 10:28-0400 Systolic blood pressure 115 mm[Hg] Carolyn Arguello JAVA SWING DEVELOPER-C Work Phone: [facility] 03-11-2025 09:35-0400 Body height 162.56 cm Russell Martinez PA Work Phone: [facility] 03-11-2025 09:35-0400 Body mass index (BMI) [Ratio] 31.6 kg/m2 Russell Martinez PA Work Phone: [facility] 03-11-2025 09:35-0400 Body temperature 98.2 [degF] Russell Martinez PA Work Phone: [facility] 03-11-2025 09:35-0400 Body weight 83.46 kg Russell Martinez PA Work Phone: [facility] 03-11-2025 09:35-0400 Diastolic blood pressure 86 mm[Hg] Russell Martinez PA Work Phone: [facility] 03-11-2025 09:35-0400 Respiratory rate 86 /min Russell Martinez PA Work Phone: [facility] 03-11-2025 09:35-0400 SaO2% (BldA) [Mass fraction] 98 % Russell Martinez PA Work Phone: [facility] 03-11-2025 09:35-0400 Systolic blood pressure 120 mm[Hg] Russell Martinez PA Work Phone: [facility] 06-03-2021 13:50-0400 Body height 162.56 cm Daphney [...] Date Encounter Type Care Provider Facility Start: 08-26-2025 End: 08-26-2025 ambulatory Delma Moon Facility:[facility] Start: 05-25-2025 End: 05-25-2025 ambulatory Carolyn Arguello JAVA SWING DEVELOPER-C Work Phone: -[facility] Start: 05-25-2025 End: 05-25-2025 Patient encounter procedure Carolyn Arguello JAVA SWING DEVELOPER-C -[facility] Start: 05-25-2025 End: 05-25-2025 ambulatory Carolyn Arguello Facility:[facility] Start: 05-06-2025 End: 05-06-2025 ambulatory Carolyn Jos JAVA SWING DEVELOPER-C Work Phone: -[facility] Start: 05-06-2025 End: 05-06-2025 Patient encounter procedure Delma Moon CNM -[facility] Start: 05-06-2025 End: 05-06-2025 ambulatory Delma Moon Facility:[facility] Start: 05-02-2025 End: 05-02-2025 ambulatory Carolyn Arguello JAVA SWING DEVELOPER-C Work Phone: [facility] Start: 05-02-2025 End: 05-02-2025 Patient encounter procedure Delma Moon CNM -[facility] Work Phone: Start: 05-02-2025 End: 05-02-2025 ambulatory Delma Moon Facility:[facility] Start: 04-27-2025 End: 04-27-2025 ambulatory Carolyn Arguello JAVA SWING DEVELOPER-C Work Phone: -Laboratory Specimen Start: 04-27-2025 End: 04-27-2025 Patient encounter procedure Delma Red CNM -Laboratory Specimen Work Phone: Start: 04-27-2025 End: 04-27-2025 Patient encounter procedure Delma Red [facility]ARDO [facility] Start: 04-27-2025 End: 04-27-2025 Patient encounter status Delma Moon CNNilda [facility] Start: 04-27-2025 End: 04-27-2025 ambulatory Carolyn Arguello NP-C Work Phone: -[facility] @ Start: 04-27-2025 End: 04-27-2025 ambulatory Delma Moon Facility:[facility] Start: 03-11-2025 End: 03-11-2025 Patient encounter procedure Russell MCCULLOUGH -[facility] Work Phone: Start: 03-11-2025 End: 03-11-2025 ambulatory Russell MCCULLOUGH [facility] Work Phone: Start: 11-18-[address] MIGUELITO REESE DO Facili ty:B Start: 11-18-2023 End: 11-22-[address] MIGUELITO REESE DO [facility] Start: 10-16-2023 End: 10-17-2023 ambulatory SAMUEL LEDEZMA RESIDENTIAL TEAM LEADER-TEACHER SELECTION SPECIALIST Facility:B Start: 06-03-2021 Office outpatient ne w 20 minutes Daphney Contreras MD, MPH Work Phone: [facility] Work Phone: Start: 04-17-2018 Ambulatory Melanie Varner lity:[facility] Procedures Date Procedure Procedure Detail Performing Clinician Start: 05-25-2025 Serum progesterone measurement Carolyn Arguello NP-C Work Phone: Comment on above: Follicular phase 0.1 - 0.9 Luteal phase 1.8 - 23.9 Ovulation phase 0.1 - 12.0 First trimester 11.0 - 44.3 Second trimester 25.4 - 83.3 Third trimester 58.7 - 214.0 Postmenopausal 0.0 - 0.1Performed at: CB - [facility] [id number] [place], [place] [id number] Director: Leonard Valladares PhD, Phone: [phone] Start: 05-02-2025 Transvaginal echography Carolyn Arguello JAVA SWING DEVELOPER-C Work Phone: Start: 04-27-2025 Liquid based cervica l cytology screening Carolyn Arguello JAVA SWING DEVELOPER-C Work Phone: Comment on above: NEGATIVE FOR [...] Activity Detail Author Hemoglobin A1c/Hemoglobin.total in Blood [facility] Liquid based cervical cytology screening [facility] Thyroid stimulating hormone measurement [facility] US Pelvis transvaginal [facility] Immunizations Immunization Date Immunization Notes Care Provider Fa grisel 05-20-[address] [facility] [place] 02-05-[address] MIGUELITO REESE DO [facility] Payers Date Payer Category Payer Private Health Insurance [id number] 2025 Self-pay 2025 Unknown [id number] 2023 Unknown [id number] 1995 Unknown [id number] 2.16.8 [id number] 1995 Unknown [id number] 2.16.8 [id number] [facility] [id number] Unknown Unknown [id number] 2.16.8 [id number] Unknown [id number] 2.16.8 [id number] Unknown [id number] 2.16.8 [id number] Unknown [id number] 2.16.8 [id number] Unknown [id number] 2.16.8 [id number] Unknown [id number] 2.16.8 [id number] Unknown [id number] 2.16.8 [id number] Social History Date Type Detail Facility Engaged to be Engaged to be marri ed [facility] Work Phone: Start: 07-09-2021 End: 04-27-2025 Tobacco smoking status Never smoked tobacco (finding) [facility] Sex Assigned At Sex [facility] Tobacco smoking status SCIS Unknown if ever smoked [facility] Work Phone: Start: 1995 Sex Assigned At Female [facility] Gender Identity Identifies as fe male gender (finding) [facility] Sexual Orientation Heterosexual (finding) [facility] NEGATED: Highlighted row - - [id number] Liliana durbin [address] M Work Phone: Functional Status Date Assessment Result Facility NEGATED: Highlighted row Functional performance Functional status health issues are not documented Disease NA-BBML-SJLKJUANITA Zamora [address] M Work Phone: Mental Status Date Assessment Result Facility NEGATED: Highlighted row Cognitive function [Interpretation] Cognitive status health issues are not documented Disease VIVIANE Zamora [address] M Work Phone: Clinical Notes 05-23-2021 to 05-02-2025 Note Date & Type Note Facility 05-02-2025 Radiology Diagnostic study note [facility] Services [address] [place] [address] Transvaginal Non- MR#: [id number] Acct: [id number] Name: ELLY GANDHI Rep #: [id number] : 1995 F 30 From: Miguel Angel Diallo MD PCP: [facility] Status: REG CLI Study:Transvaginal Non- Date of Exam: 05/02/25 Exam# [id number] Ordering Dr: Delma Moon CNM PROCEDURE: TRANSVAGINAL [...] are seen in both ovaries. Reading Location: [facility] CC: BENNETT Moon; PHI Arguello ~ Intelligence Agent: Signed [facility] 04-27-2025 Progress note [facility] 03-11-2025 Evaluation note Diagnosis Onset Date Resolution Acute sinusitis acute March 11, 2025 9:24am Secondary amenorrhea acute April 27, 2025 10:15am Encounter for routine gynecological examination noneactive April 27, 2025 10:15am [facility] Work Phone: 1(875) 225-543101-26-2024 Note. MICRO - Microbiology PROCEDURE: Urine Culture [...] Locations *1: This test was performed at: [facility], [address] [place] [address], [address]- , [facility] ([place])05-23-2021 History of Present illness NarrativeStates that she was treated by telemedicine provider on May 23 for presumed UTI. She was placed onantibiotics, she believes it was Macrodantin, and finish the prescription. Presents now because theurinary frequency and urgency have returned today. No dysuria yet. No fever, chills, nausea, vomiting, stool changes, back or abdominal pain. Last menstrual period was about 4 weeks ago.-[facility] Work Phone: [phone] History of Present illness NarrativeStates that she was treated by telemedicine provider on May 23 for presumed UTI. She was placed onantibiotics, she believes it was Macrodantin, and finish the prescription. Presents now because theurinary frequency and urgency have returned today. No dysuria yet. No fever, chills, nausea, vomiting, stool changes, back or abdominal pain. Last menstrual period was about 4 weeks ago.- [facility] Work Phone: Evaluation + Plan note No data available for this section [facility] Evaluation noteNo assessment information available [facility] Work Phone: Hospital Discharge instructions No data available for this section [facility] Progress note No data available for this section [facility] Progress note Author Delma Moon [facility] Note Date/Time April 27, 2025 11:10 am [facility] [address], [address] [place] [address] OFFICE VISIT Date of Service: 04/27/25 MR#: [id number] Acct: [id number] Name: Elly Gandhi Rep #: [id number] : 1995 Provider: BENNETT Moon Age/Sex: 30/F Location: [facility].W Status: Signed Intake Vital Signs 03/11/25 09:35 04/27/25 10:28 04/27/25 10:36 Height 5 ft 4 in 5 ft 4 in 5 ft 4 in Weight: 184 lb 168 lb BMI 31.6 28.8 BP 120/86 H 115/80 Position Sitting Respiration 86 H Temp 98.2 F Pulse Oximetry (%) 98 Oxygen Delivery Method room air Intake Visit Reasons: 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 Required: No Is patient in pain?: No [...] 0 current occupational status: employed 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 pets and animals: Yes pets and animals: [...] physical activity do you participate in: none greg/amish: Yarsani seatbelt use: always do you feel safe [...] Cosigner Signature: Date (if applicable) CC: ~ [facility] Work Phone: Reason for referral (narrative)No reason for referral information availableK[facility] Work Phone: Summary Purpose Family History No [...] bilat ear pain March 11 9:24am Annual (FRONT FACER) April 27, 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 Reason for Visit Admit Date Acute sinusitis March 11, 2025 9:24a m Secondary amenorrhea April 27, 2025 10:1 5am Encounter for routine gynecological exam ination April 27, 2025 10:15am Chief Complaint Admit Date sore throat, bilat ear pain March 11 9:24am Annual (FRONT FACER) April 27, 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 AMENORRHEA May 02, 2025 7:41a m Additional Source Comments INFORMATION SOURCE (unrecogn ized section and content) DATE CREATED AUTHOR 04/24/2018 [facility] DATE CREATED AUTHOR AUTHOR'S ORGANIZ ATION 04/24/2018 [facility] DATE CREATED AUTHOR AUTHOR'S ORGANIZ ATION 06/03/2021 [facility] DATE CREATED AUTHOR AUTHOR'S ORGANIZ ATION 11/24/2021 [facility] DATE CREATED AUTHOR AUTHOR'S ORGANIZ ATION 11/22/2023 [facility] ([place]) DATE CREATED AUTHOR AUTHOR'S ORGANIZ ATION 08/30/2025 [facility] Patient Care team informatio n (unrecognized section and content) Team Status: Inactive Member Role Status Dates JAMEL Hdz Attending Provider Active Sta rt: March 11, 2025 End: March 11, 2025 Team Status: Active Member Role/Relationship Status Dates Carolyn Arguello JAVA SWING DEVELOPER-C Primary Care Provider Active Team Status: Inactive Member Role/Relationship Status Dates JAMEL Hdz Attending Provider Active Sta rt: March 11, 2025 End: March 11, 2025 Team Status: Inactive Member Role/Relationship Status Dates Delma Moon CNM Attending Provider Active S tart: April 27, 2025 End: April 27, 2025 Carolyn Arguello JAVA SWING DEVELOPER-C Primary Care Provider Active Start: April 27, 2025 End: April 27, 2025 Carolyn Arguello JAVA SWING DEVELOPER-C Referring Provider Active St art: April 27, 2025 End: April 27, 2025 Team Status: Inactive Member Role/Relationship Status Dates Carolyn Arguello JAVA SWING DEVELOPER-C Primary Care Provider Active Start: April 27, 2025 End: April 27, 2025 Delma Moon CNM Attending Provider Active S tart: April 27, 2025 End: April 27, 2025 Delma Moon CNM Referring Provider Active S tart: April 27, 2025 End: April 27, 2025 Team Status: Active Member Role/Relationship Status Dates Carolyn Arguello JAVA SWING DEVELOPER-C Primary Care Provider Active Start: May 02, 2025 Delma Moon CNM Attending Provider Active S tart: May 02, 2025 Delma Moon CNM Referring Provider Active S tart: May 02, 2025 Team Status: Inactive Member Role/Relationship Status Dates Carolyn Arguello JAVA SWING DEVELOPER-C Primary Care Provider Active Start: May 02, 2025 End: May 02, 2025 Delma Moon CNM Attending Provider Active S tart: May 02, 2025 End: May 02, 2025 Delma Moon CNM Referring Provider Active S tart: May 02, 2025 End: May 02, 2025 Team Status: Active Member Role/Relationship Status Dates Carolyn Arguello JAVA SWING DEVELOPER-C Primary Care Provider Active Start: May 06, 2025 Delma Moon CNM Attending Provider Active S tart: May 06, 2025 Delma Moon CNM Referring Provider Active S tart: May 06, 2025 Team Status: Inactive Member Role/Relationship Status Dates [facility] Primary Care Provider Active Start: May 06, 2025 End: May 06, 2025 Delma Moon CNM Attending Provider Active S tart: May 06, 2025 End: May 06, 2025 Delma Moon CNM Referring Provider Active S tart: May 06, 2025 End: May 06, 2025 Team Status: Inactive Member Role/Relationship Status Dates [facility] Primary Care Provider Active Start: May 25, 2025 End: May 25, 2025 [facility] Attending Provider Active St art: May 25, 2025 End: May 25, 2025 Goals (unrecognized section and content) Goals [...] BE BASED ON THE PRIMARY CLINICAL RECORDS. [facility] [employer] provides no warranty or guarantee of the accuracy or completeness of information in this document.
[2025-09-24 06:07] LABS: PROGESTERONE 0.2 ng/mL (.)
== END | disposition home or self-care (01) ==
LOC: LAB 08:26
PROVIDERS: PCP Nurse Practitioner Family; Referring Provider Advanced Practice Midwife; Visit Provider Advanced Practice Midwife
DX: N91.1 Secondary amenorrhea (principal); Z87.42 Personal history of other diseases of the female genital tract
CPT/HCPCS: 36415; 84144